=== PATIENT | female | born 1950 | race Caucasian/White ===

== ENCOUNTER 2019-01-24 14:34 | Outpatient (CLI) | payer MEDICARE, OTHER, SELFPAY ==
--- NOTE | 2019-01-24 13:00 | DI.RAD_ITS ---
SYMPTOMS/DIAGNOSIS: CERVICALGIA, M54.2, SCOLIOSIS, BACK PAIN, M46.0, LOW BACK PAIN, M54.5 CERVICAL SPINE: Odontoid, AP and lateral views. There is straightening of the normal cervical lordosis. 1-2 mm of anterolisthesis is seen on C4 on C5. There is disc space narrowing as seen at C3-4, 5-6 and C6-C7. Endplate osteophytes are seen at multiple levels of the cervical spine. There are also hypertrophic changes of the facets, particularly at C3-4. Mild narrowing of the neural foramen is seen bilaterally at C3-C4. No acute fracture or subluxation is seen. The prevertebral soft tissues are unremarkable. IMPRESSION: Moderate degenerative changes in the cervical spine. THORACIC SPINE: AP and lateral views. No priors. There is a mild right convex scoliosis seen in the lower thoracolumbar spine. There are endplate osteophytes present throughout the thoracic spine. No acute fractures or subluxations are seen. The paraspinal lines appear intact. IMPRESSION: 1. Mild degenerative changes of the thoracic spine. 2. Right convex lower thoracic and lumbar scoliosis. LUMBAR SPINE: AP, lateral and bilateral oblique views. No priors. There is a right convex scoliosis from T10-L3. No spondylolysis or spondylolisthesis is seen. No acute fractures or subluxations are present. There is disc space narrowing at L2-3 and L4-L5. Endplate osteophytes are present throughout the lower lumbar spine. There are degenerative changes seen in the lumbar spine. IMPRESSION: 1. Right convex lower thoracic and lumbar scoliosis. 2. Mild to moderate degenerative changes in the lumbar spine.
== END 2019-01-24 14:54 ==
PROVIDERS: PCP Nurse Practitioner Adult Health; Visit Provider Nurse Practitioner Adult Health
DX: G89.29 Other chronic pain (principal); M54.2 Cervicalgia; M54.6 Pain in thoracic spine; M54.5 Low back pain; M51.14 Intervertebral disc disorders with radiculopathy, thoracic region; M41.24 Other idiopathic scoliosis, thoracic region; M51.16 Intervertebral disc disorders with radiculopathy, lumbar region; M41.26 Other idiopathic scoliosis, lumbar region
CPT/HCPCS: 72050; 72072; 72110

== ENCOUNTER 2020-01-12 00:29 | Outpatient (CLI) | payer MEDICARE, OTHER, SELFPAY ==
--- NOTE | 2020-01-12 07:45 | DI.RAD_ITS ---
EXAM: XR WRIST LT COMPLETE CLINICAL HISTORY: pain in wrist ulna; assess bones; ?remote fractURE,M25.539,M89.8X3. TECHNIQUE: 2D digital imaging was performed. COMPARISON: No exams were available for comparison FINDINGS: BONES: No acute or healing fracture is present. No bony destructive lesion is seen. JOINTS: The carpal bones are normally aligned. At the 1st carpometacarpal joint, there is joint spac e narrowing, subchondral sclerosis and marked hypertrophy. Mild degenerative changes are seen at the articulation of the scaphoid and the quadrangular bones. SOFT TISSUE: Normal. IMPRESSION: 1. No acute or healing fracture or dislocation. 2. Marked arthrosis of the 1st carpometacarpal joint. DATA REPOSITORY: RADIATION DOSE DELIVERED:
--- NOTE | 2020-01-12 15:30 | DI.MAMMO_ITS ---
EXAM: MAMMO SCREENING CLINICAL HISTORY: screening TECHNIQUE: Mammograms were interpreted according to the usual protocol including computer analysis w [employer] CAD system, tomosynthesis and C-view imaging. FINDINGS: The breasts are heterogeneously dense. No dominant mass or clumped microcalcification is identified in either breast. No prior studies available for comparison. There is an area of asymmetric density projected in the central superior portion of left breast seen on CC and MLO views. Breast architecture is not ideally visualized at this site. Additional mammogr aphic views are requested to evaluate the possibility of a mass or architectural distortion, to inclu de CC and MLO spot compression views of the left breast. Breast ultrasound recommended as well. IMPRESSION: Additional mammographic views left breast and left breast ultrasound requested as described above. Ca tegory 0. Breast density, category C. BI-RADS Cat 0 - Assessment Incomplete: Need additional imaging evaluation. Breast Density - Category C - Heterogeneously dense.
== END 2020-01-12 00:49 ==
PROVIDERS: PCP Nurse Practitioner Adult Health; Visit Provider Nurse Practitioner Adult Health
DX: Z12.31 Encounter for screening mammogram for malignant neoplasm of breast (principal); R92.8 Other abnormal and inconclusive findings on diagnostic imaging of breast; M25.532 Pain in left wrist; M18.12 Unilateral primary osteoarthritis of first carpometacarpal joint, left hand
CPT/HCPCS: 77063; 77067; 73110

== ENCOUNTER 2020-02-16 01:51 | Outpatient (CLI) | payer MEDICARE, OTHER, SELFPAY ==
--- NOTE | 2020-02-16 | DI.MAMMO_ITS ---
EXAM: ADDITIONAL MAMMOGRAPHIC VIEWS LEFT BREAST AND US BREAST LT LIMITED: CLINICAL HISTORY: F/U ABNL MAMMO, LT BREAST SYMMETRIC DENSITY, ? MASS TECHNIQUE: Ultrasound performed using standard protocol. COMPARISON: No exams were available for comparison FINDINGS: Additional mammographic views of the left breast and left breast ultrasound are interpreted in conjun ction. These examinations were obtained to evaluate questionable area of asymmetric density of the c entral superior portion of left breast seen on recent mammogram of January 11. CC and MLO spot compression views obtained today show no evidence of a mass. Breast ultrasound shows no evidence of a mass or cyst. IMPRESSION: No specific evidence of malignancy at this time. I would suggest that a follow-up unilateral left b reast mammogram be obtained in 6 months. DATA REPOSITORY: BI-RADS Cat 3 - 6 month - Probably Benign Finding: Recommend follow-up mammography in 6 months Breast Density - Category B - Scattered areas of fibroglandular density
== END 2020-02-16 02:11 ==
PROVIDERS: PCP Nurse Practitioner Adult Health; Visit Provider Nurse Practitioner Adult Health
DX: Z12.31 Encounter for screening mammogram for malignant neoplasm of breast (principal); R92.8 Other abnormal and inconclusive findings on diagnostic imaging of breast; N64.59 Other signs and symptoms in breast
CPT/HCPCS: 76642; 77063; 77067

== ENCOUNTER 2020-08-19 02:17 | Outpatient (CLI) | payer MEDICARE, OTHER, SELFPAY ==
--- NOTE | 2020-08-19 07:30 | DI.MAMMO_ITS ---
EXAM: MG MAMMO DIAGNOSTIC UNI CLINICAL HISTORY: 6 mo f/u mammo,R92.8. COMPARISON: MG MG MAMMO SCREENING from 01/12/2020 US US BREAST LT LIMITED from 02/16/2020 MG MG MAMMO SCREEN CALL BACK UNI from 02/16/2020 TECHNIQUE: Craniocaudal and mediolateral oblique Full Field Digital Mammography views of the left br east with Computer Aided Diagnosis . FINDINGS: Mammography/Tomosynthesis: Masses/Architectural Distortion: None seen. The previously noted superior central density is not evid ent on today's exam. Microcalcifications: No suspicious pleomorphic-type are seen. Incidental vascular calcifications. Skin Thickening/Nipple Retraction: None. IMPRESSION: 1. No evidence of malignancy is noted. 2. Unless there is more urgent need, follow-up bilateral screening mammography is recommended, in 6 m onths. BI-RADS Category 1 - Negative Breast Density - Category B - Scattered areas of fibroglandular density The mammogram demonstrates the patient's breast tissue is dense. Dense breast tissue is very common a nd is not abnormal but dense breast tissue can make it harder to find cancer on a mammogram. Also, de nse breast tissue may increase their breast cancer risk. This information about the result of the [facility] mogram report was provided to the patient to raise their awareness. Use this report when you speak wi th the patient about their risks for breast cancer, which includes their family history. At that time , you may recommend for more screening tests (Ultrasound or MRI) as they might be useful based on the ir risk. A negative radiographic report should not delay biopsy if a dominant or clinically suspicious mass is present. Up to ten percent of cancers are not identified on mammography. A negative report may reinforce clinical impression. Adenosis and dense breasts may obscure an underlying neoplasm. False positive reports average 6 to 10%. Patient will receive a letter notifying them of these results.
== END 2020-08-19 02:37 ==
PROVIDERS: PCP Nurse Practitioner Adult Health; Visit Provider Nurse Practitioner Adult Health
DX: R92.8 Other abnormal and inconclusive findings on diagnostic imaging of breast (principal)
CPT/HCPCS: 77061; 77065; G0279

== ENCOUNTER 2020-10-04 00:59 | Outpatient (CLI) | payer MEDICARE, OTHER, SELFPAY ==
--- NOTE | 2020-10-04 07:30 | DI.US_ITS ---
EXAM: US PELVIS TRANSVAGINAL CLINICAL HISTORY: Check uterine size,UTERINE PROLAPSE,N81.4. TECHNIQUE: Transabdominal and transvaginal pelvic ultrasound was performed using standard protocol. COMPARISON: CR XR cervical spine comp 4-5V from 01/24/2019 FINDINGS: UTERUS: Uterus is nongravid and anteverted, measuring 5.5 centimetres in length by 1.8 centimetres AP. Small amount of fluid is noted in the endometrial canal. Endometrial thickness is 5 millimeters. There i s also 4 x 3 millimeter hyperechoic focus which is probably a endometrial polyp the mid endometrial l evel. Right ovary measures 2 x 1.2 x 1.1 centimetres. Left ovary measures 1.9 x 1.2 x 1.2 centimetres No fluid in the cul-de-sac. Right kidney measures 8.6 centimeters in length. Left kidney measures 8.9 centimetres in length. Both kidneys exhibit normal cortical thickness and normal corticomedullary differentiation. No hydro nephrosis IMPRESSION: 1. Normal sonographic appearance of the kidneys. 2. There is abnormal fluid in the endometrial cavity. Requires workup 3. Age-appropriate ovaries. No abnormal adnexal masses. No free fluid. DATA REPOSITORY:
== END 2020-10-04 01:19 ==
PROVIDERS: PCP Nurse Practitioner Adult Health; Visit Provider Obstetrics & Gynecology
DX: N81.4 Uterovaginal prolapse, unspecified (principal); R93.89 Abnormal findings on diagnostic imaging of other specified body structures
CPT/HCPCS: 76830; 76856

== ENCOUNTER 2020-10-15 03:05 | Outpatient (CLI) | payer MEDICARE, OTHER, SELFPAY ==
[2020-10-15 12:58] LABS: Abs Immature Grans 0.01 10^3/uL (0.0-0.06); Absolute Basophil Count 0.04 10^3/uL (0.0-0.2); Absolute Eosinophil Count 0.06 10^3/uL (0.0-0.7); Absolute Lymphocyte Count 1.42 10^3/uL (1.2-3.4); Absolute Monocyte Count 0.45 10^3/uL (0.1-0.8); Absolute Neutrophil Count 4.61 10^3/uL (1.2-6.7); Basophils % 0.6; Eosinophils % 0.9; HCT 40.8 % (36.0-46.0); HGB 13.2 g/dL (11.2-15.7); Immature Grans % 0.2; Lymphocytes % 21.5; MCH 29.1 pg (27.0-33.0); MCHC 32.4 % (32.0-36.0); MCV 89.9 fL (80-95); MPV 8.4 fL (8.0-11.0); Monocytes % 6.8; Nucleated RBC 0 %; Platelet Count 317 10^3/uL (130-400); RBC 4.54 10^6/uL (3.93-5.22); RDW 12.5 % (11.7-14.6); RDW-SD 40.8 fL; WBC 6.59 10^3/uL (4.4-10.8)
[2020-10-18 21:31] LABS: COVID-19 RT-PCR Result NEGATIVE (Negative)
== END 2020-10-15 03:25 ==
PROVIDERS: PCP Nurse Practitioner Adult Health; Visit Provider Obstetrics & Gynecology
DX: N85.8 Other specified noninflammatory disorders of uterus (principal); Z11.59 Encounter for screening for other viral diseases; Z01.818 Encounter for other preprocedural examination; Z01.812 Encounter for preprocedural laboratory examination
CPT/HCPCS: 36415; 86850; 86900; 86901; U0003; 85025

== ENCOUNTER 2020-10-20 06:15 | Day surgery (SDC) | payer MEDICARE, OTHER, SELFPAY ==
[2020-10-20 06:19] VITALS: BP 149/74; PULSE 81; RESP 18; TEMP 36.6; O2SAT 96
[2020-10-20] MEDS: Lactated Ringers 1,000 ML 125 ML IV (07:10)
--- NOTE | 2020-10-20 07:57 | ENDO_PTH ---
PATIENT: Cayla Barnett LOC: [facility] U#:[id number] AGE/SX: 70/F ROOM: RE10/20/[address]: Magaly Palmer DO : 1950 BED: DIS: 10/20/2020 SPEC #: [id number] RECD: 10/20/20 12:41 STATUS: BOONE RELevi #: [id number] JJ: 10/20/20 07:[address]: Magaly Palmer DEPT: Surgical Specimen RECD BY: Avelina Cope ENTERED: 10/20/20 12:42 SP TYPE: Endo OTHR DR: Elis Jiménez APRN Tissues: 1 - ENDOCERVICAL BX/CURRETTE 2 - ENDOMETRIUM BX/CURRETTE Procedures: GROSS AND MICRO LEVEL 4 Comments: [id number]
--- NOTE | 2020-10-20 08:08 | W.PM.OP ---
Date of service: 10/20/20 Time of Service: 08:08 Operative Note Operative Note DATE OF PROCEDURE: 10/20/20 PRE-OP DIAGNOSIS: Endometrial fluid collection POST-OP DIAGNOSIS: same Atrophic endometrium with 3 mm endometrial polyp PROCEDURE: Hysteroscopy with dilation and curettage SURGEON: Magaly Palmer ANESTHESIA: MAC ESTIMATED BLOOD LOSS: 5 PATHOLOGY: other (1. Endocervical curetting 2. Endometrial curetting) COMPLICATIONS: None Patient was transported to: PACU Patient's condition: stable Indications: Endometrial fluid collection Findings: Complete procidentia, minimal hypermobility at the urethrovesical angle, no evidence of rectocele, intravaginal papulosis noted. Thin endometrium, tiny 2 to 3 mm flat polyp at the left lower uterine segment Procedure Description: Patient is a 70-year-old female with pelvic organ prolapse. Preoperative ultrasound confirmed endometrial fluid collection with suspicion of endometrial polyp. For this reason the decision was made for hysteroscopy with dilation and curettage for further evaluation. The risk benefits and alternatives procedure were explained to the patient in full informed consent was obtained. She is taken the operating suite with IV running where she was placed in dorsal supine position. Anesthesia administered tested and found to be adequate. She is then placed in the modified dorsolithotomy position in yellowfin stirrups and prepped and draped in the usual sterile fashion. Straight cath was used to empty the bladder for approximately 100 cc of clear yellow urine. exam under anesthesia revealed a uterus that was small, approximately 5 cm in length with complete procidentia. As noted, she did have vaginal alkalosis of the mucosa. There is no evidence of adnexal mass. Cervix was grasped with a single-tooth tenaculum cervical os dilated the point that a 5 mm hysteroscope could be passed with ease. With instillation of normal saline the entire endometrial cavity was inspected and found to be smooth and regular with patent tubal ostia. There was noted to be a 2 to 3 mm flat polyp in the left lower uterine segment. Initially endocervical curettage was performed for scant tissue subsequently endometrial curettage performed for scant tissue. Both specimens are sent to pathology. At this point tenaculum and speculum were both removed and patient awoke from anesthesia with ease. EBL: 5 mL Complications: None apparent Pathology: 1. Endocervical curettage 2. Endometrial curettage
[2020-10-20 09:03] VITALS: BP 154/77; PULSE 68; RESP 18; TEMP 36.2; O2SAT 98
== END 2020-10-20 09:33 | disposition home or self-care (01) ==
PROVIDERS: PCP Nurse Practitioner Adult Health; Visit Provider Obstetrics & Gynecology
PROC: 0UDB8ZZ Extraction of Endometrium, Via Natural or Artificial Opening Endoscopic (ICD-10-PCS; CPT 58558; principal; 2020-10-20 07:30)
DX: N85.8 Other specified noninflammatory disorders of uterus (principal); N84.0 Polyp of corpus uteri; N81.3 Complete uterovaginal prolapse
CPT/HCPCS: 58558; 88305; J1100; J1885; J2001; J2405

== ENCOUNTER → 2020-12-07 10:56 | Outpatient (BNVA) | payer MEDICARE, OTHER, SELFPAY | PROVIDERS: PCP Nurse Practitioner Adult Health; Referring Provider Nurse Practitioner Adult Health; Visit Provider Urology | DX: N81.4 Uterovaginal prolapse, unspecified (principal) | CPT/HCPCS: 99203 ==

== ENCOUNTER 2020-12-31 02:27 | Outpatient (CLI) | payer MEDICARE, OTHER, SELFPAY ==
[2020-12-31 12:48] LABS: Abs Immature Grans 0.01 10^3/uL (0.0-0.06); Absolute Basophil Count 0.04 10^3/uL (0.0-0.2); Absolute Eosinophil Count 0.06 10^3/uL (0.0-0.7); Absolute Lymphocyte Count 1.69 10^3/uL (1.2-3.4); Absolute Monocyte Count 0.31 10^3/uL (0.1-0.8); Absolute Neutrophil Count 3.77 10^3/uL (1.2-6.7); Basophils % 0.7; HCT 42.1 % (36.0-46.0); HGB 13.5 g/dL (11.2-15.7); Immature Grans % 0.2; Lymphocytes % 28.7; MCH 29.2 pg (27.0-33.0); MCHC 32.1 % (32.0-36.0); MCV 91.1 fL (80-95); MPV 8.2 fL (8.0-11.0); Monocytes % 5.3; Neutrophils % 64.1; Nucleated RBC 0 %; Platelet Count 338 10^3/uL (130-400); RBC 4.62 10^6/uL (3.93-5.22); RDW 12.5 % (11.7-14.6); RDW-SD 41.2 fL; WBC 5.88 10^3/uL (4.4-10.8)
== END 2020-12-31 02:28 | disposition home or self-care (01) ==
LOC: LBO 02:27
PROVIDERS: PCP Nurse Practitioner Adult Health; Visit Provider Obstetrics & Gynecology
DX: N81.3 Complete uterovaginal prolapse (principal); N84.0 Polyp of corpus uteri; Z01.818 Encounter for other preprocedural examination; Z01.812 Encounter for preprocedural laboratory examination
CPT/HCPCS: 36415; 86850; 86900; 86901; 85025

== ENCOUNTER 2021-01-05 10:48 | Inpatient (IN) | payer MEDICARE, OTHER, SELFPAY ==
[2021-01-05] VITALS (21 sets, daily range): BP systolic 95–132; BP diastolic 42–73; PULSE 46–84; RESP 12–18; TEMP 36.3–36.8; O2SAT 93–99
[2021-01-05] MEDS: Lactated Ringers 1,000 ML 125 ML IV ×3 (06:52→20:15)
[2021-01-05] MEDS: ceFAZolin 2 GM/50 ML BAG IVPB (07:34)
[2021-01-05] MEDS: Bupivacaine 0.5% Pres-Free 30 ML VIAL (08:32)
--- NOTE | 2021-01-05 09:20 | UTER_PTH ---
PATIENT: Cayla Barnett LOC: [facility] U#:[id number] AGE/SX: 71/F ROOM: OBS.306 RE01/05/[address]: Magaly Palmer DO : 1950 BED: A DIS: 01/06/2021 SPEC #: [id number] RECD: 01/05/21 12:43 STATUS: BOONE REQ #: [id number] JJ: 01/05/21 09:[address]: Magaly Palmer DEPT: Surgical Specimen RECD BY: Avelina Cope ENTERED: 01/05/21 12:44 SP TYPE: UTER OTHR DR: Elis Jiménez APRN Tissues: 1 - UTERUS W OR W/O OVARIES(NOT TUMOR/PROLAPSE) Procedures: GROSS AND MICRO LEVEL 4 Comments: [id number]
--- NOTE | 2021-01-05 10:52 | W.PM.OP ---
Date of service: 01/05/21 Time of Service: 10:52 Operative Note Operative Note DATE OF PROCEDURE: 01/05/21 PRE-OP DIAGNOSIS: Pelvic organ prolapse POST-OP DIAGNOSIS: same PROCEDURE: Laparoscopically assisted vaginal hysterectomy with bilateral salpingo-oophorectomy, Callahan's culdoplasty, anterior colporrhaphy, Rachana plication, cystoscopy SURGEON: Magaly Palmer ASSISTING SURGEON: Maribel Nayak ANESTHESIA TYPE: General LMA/ETT and Spinal Refer to Anesthesia Record ESTIMATED BLOOD LOSS: 100 COMPLICATIONS: None Patient was transported to: PACU Patient's condition: stable Indications: Symptomatic pelvic organ prolapse Findings: Complete procidentia, grade 2 cystocele, small uterus, atrophic ovaries, normal fallopian tubes. Procedure Description: Patient is a 71-year-old female who has symptomatic uterine and bladder prolapse. She states that during a normal day, her bladder and uterus protrude through the vagina which is uncomfortable and awkward for her. She has had a full and thorough evaluation including preoperative work-up with ultrasound and endometrial sampling which were benign. She is also been seen by urology for evaluation of need for mid urethral sling, however she declined this at this point and we will see what her bladder function is post surgical correction. The risks, benefits, alternatives the procedure were explained to the patient and full informed consent was obtained. She was taken the operating suite with an IV running where she is placed in the seated position and intrathecal narcotics were administered in the usual fashion per anesthesia. She was then placed in the dorsal supine position and endotracheal intubation performed for the ministration of general anesthesia with ease. At this point she was placed in the modified dorsolithotomy position in [facility] and prepped and draped in the usual sterile fashion. Exam under anesthesia revealed complete procidentia with a grade 2 cystocele and minimal rectocele. Uterus was small, midline, mobile, without evidence of adnexal masses. At this point weighted speculum placed into the posterior vaginal vault and a [employer] uterine manipulator used to manipulate the uterus. Garcia catheter was inserted for continuous bladder drainage. At this point speculum was removed and attention was returned to the abdomen. After infiltration of half percent Marcaine at the infraumbilical area a 10 mm incision was made at the umbilicus and a varies needle directly inserted into the abdomen after elevation of the anterior abdominal wall. Varies needle was used to insufflate with CO2 gas to a maximum pressure of 15 mmHg to create a pneumoperitoneum. At this point varies needle was removed and a bladeless Optiview trocar was used to insert camera under direct visualization. The abdomen was inspected and found to be atraumatic. At this point a second and third right and left lower quadrant trocar site were placed under direct visualization a 5 mm trocar after infiltration of half percent Marcaine. This allowed for instrumentation as the uterus was elevated, it was found to be small, midline, and mobile. There is no evidence of adnexal adhesions or pelvic adhesions. Ovaries bilaterally were small, atrophic and normal fallopian tubes were attached. Attention was initially turned to the right fallopian tube and ovary which were elevated and the infundibulopelvic ligament identified cautery transected and ligated. The right round ligament was then identified cautery transected and ligated allowing access to the broad ligament. The anterior leaf of the broad ligament was elevated and the anterior portion of the bladder flap created. Similar procedure was carried out on the left infundibulopelvic ligament, the left round ligament, and the left anterior leaf of the broad ligament. At this point uterine arteries were cauterized bilaterally to assist with the lower portion of the dissection. At this point the abdominal portion of the procedure was completed and attention was turned to the vaginal vault. CO2 gas and camera were removed from the abdomen. At this point a weighted speculum was placed in the posterior vaginal vault. The uterus was significantly small and relaxed and a Ivan clamp used to grasp the anterior lip of the cervix. With the Bovie cautery a circumferential incision was placed at the cervical vaginal interface. Attention was turned to the right and left uterosacral complexes which were clamped transected and ligated. The anterior dissection was performed with anterior colpotomy followed by a posterior colpotomy after meticulous sharp dissection. Cervical length was noted to be markedly long and approximately 6 cm and remainder of the uterus relatively small. In a systematic fashion the uterosacral cardinal complexes were grasped bilaterally transected and ligated as were the uterine vessels clamped transected and ligated. This allowed delivery of the uterus, tubes, and ovaries through the vaginal vault. At this point a Callahan's culdoplasty was performed in the usual fashion to plicate any area of enterocele. With inspection of the pedicles and Callahan culdoplasty stitch found to be hemostatic anterior colporrhaphy was then undertaken. The anterior vaginal mucosa was infiltrated with 1% lidocaine with epinephrine for [place] dissection and hemostasis. The vaginal mucosa was then meticulously sharply acted away from the underlying endopelvic fascia. The vaginal mucosa was trimmed and a Rachana plication stitch placed in the suburethral area. The remainder of the endopelvic fascia anteriorly were reapproximated in the midline and the vaginal mucosa was then reapproximated in the midline as well. The uterosacral cardinal complex stitches were suspended to the apices of the vagina with a free stitch and the vaginal cuff was then closed using 0 Vicryl suture in a running locked fashion. This provided good anterior support, elevation of the suburethral area, and suspension of the vaginal apices. Upon completion of the anterior colporrhaphy with Callahan's culdoplasty there was no notable rectocele appreciated and posterior colporrhaphy was not necessary. Attention was then returned to the abdomen where pneumoperitoneum recreated with CO2 gas to a maximum pressure of 15 mmHg. All pedicles and vaginal cuff were inspected and found to be hemostatic. Visualization of the right ureter past peristalsing appropriately was seen left ureter was obscured by the rectosigmoid colon. Due to the complexity of the dissection and incomplete visualization of the left ureter decision was made for bladder cystoscopy. Patient received indigo carmine intravascularly. The infraumbilical incision at the fascia was closed using 0 Vicryl suture in a simple interrupted fashion and skin edges were reapproximated with 4-0 Monocryl and Steri-Strips were then placed. Attention was turned to cystoscopy where a 30 degree camera was used to visualize the entirety of the bladder and ureteric orifice ease. There was no evidence of trauma, injury, or suture within the bladder. Both ureteric orifice ease were visualized and with tuft of blue dyed urine found to be patent. At this point procedure was terminated and Garcia catheter was reinserted. Patient was returned to dorsal supine position and woke from anesthesia with ease with her Garcia catheter draining blue tinted urine. EBL: 100 mL Fluids: Crystalloid per anesthesia Complications: None apparent Pathology: Uterus, tubes, ovaries for pathologic examination.
[2021-01-05] MEDS: Normal Saline Flush 10 ML SYR IV (12:00)
[2021-01-05] MEDS: Ketorolac 30 MG/ML VIAL 15 MG IVP ×2 (13:13→19:10)
--- NOTE | 2021-01-05 16:36 | PGE_ITS ---
Date of Service Date of service: 01/05/21 Time of Service: 16:36 Assessment and Plan Assessment and plan (1) Status post laparoscopy-assisted vaginal hysterectomy: Status: Acute Assessment and plan: Patient is postoperative day #0 status post laparoscopically assisted vaginal hysterectomy with bilateral salpingo- oophorectomy and anterior colporrhaphy with Callahan's culdoplasty. She is doing well postoperatively. She will have her Garcia catheter removed. She will continue to ambulate. Advance diet as tolerated. Pain control as necessary. Anticipate discharge home tomorrow if stable. Subjective Subjective Patient reports: tolerating liquids well, tolerating a regular diet and no flatus; denies shortness of breath Exam Narrative Exam Narrative: Patient seen today postoperative day #0. Surgical procedure reviewed at length. Patient doing well. Minimal nausea. Pain under good control. Vital signs are stable. Objective Last Vital Signs Temp 98.1 F 01/05/21 13:42 Pulse 70 01/05/21 13:42 Resp 16 01/05/21 13:42 BP 121/55 L 01/05/21 13:42 Pulse Ox 99 01/05/21 13:42
[2021-01-05] MEDS: Ondansetron 4 MG/2 ML VIAL IVP (16:55)
[2021-01-05] MEDS: Metoclopramide 10 MG/2 ML VIAL IVP (19:10)
[2021-01-05] MEDS: Normal Saline 250 ML 500 ML IV (19:45)
[2021-01-05] MEDS: Scopolamine 1 MG/3 DAYS PATCH TD (20:00)
[2021-01-05] MEDS: Budesonide/Formoterol 160/4.5 6 GM 60 PUFF INH IH (20:00)
--- NOTE | 2021-01-05 20:42 | NUR.NOTE ---
Pt continues to have nausea and hypoactive bowel sounds. Ambulation encouraged, pt states she is afraid she will vomit if she gets out of bed. will call RN when she feels ready to ambulate.
[2021-01-06] VITALS (7 sets, daily range): BP systolic 111–128; BP diastolic 49–58; PULSE 64–69; RESP 16–18; TEMP 36.7–36.9; O2SAT 94–98
[2021-01-06] MEDS: Ketorolac 30 MG/ML VIAL 15 MG IVP (01:21)
[2021-01-06 06:57] LABS: Abs Immature Grans 0.02 10^3/uL (0.0-0.06); Absolute Basophil Count 0.02 10^3/uL (0.0-0.2); Absolute Eosinophil Count 0.01 10^3/uL (0.0-0.7); Absolute Lymphocyte Count 1.49 10^3/uL (1.2-3.4); Absolute Monocyte Count 0.73 10^3/uL (0.1-0.8); Absolute Neutrophil Count 6.38 10^3/uL (1.2-6.7); Basophils % 0.2; Eosinophils % 0.1; HCT 34.6 % (36.0-46.0); HGB 11.2 g/dL (11.2-15.7); Immature Grans % 0.2; Lymphocytes % 17.2; MCH 29.6 pg (27.0-33.0); MCHC 32.4 % (32.0-36.0); MCV 91.5 fL (80-95); MPV 8.5 fL (8.0-11.0); Monocytes % 8.4; Neutrophils % 73.9; Nucleated RBC 0 %; Platelet Count 271 10^3/uL (130-400); RBC 3.78 10^6/uL (3.93-5.22); RDW 12.5 % (11.7-14.6); RDW-SD 41.9 fL; WBC 8.65 10^3/uL (4.4-10.8)
[2021-01-06] MEDS: Budesonide/Formoterol 160/4.5 6 GM 60 PUFF INH IH (08:46)
--- NOTE | 2021-01-06 09:34 | PGE_ITS ---
Date of Service Date of service: 01/06/21 Time of Service: 09:34 Assessment and Plan Assessment and plan (1) Status post laparoscopy-assisted vaginal hysterectomy: Status: Acute Assessment and plan: Patient is postoperative day #1 status post laparoscopically assisted vaginal hysterectomy with bilateral salpingo- oophorectomy culdoplasty and anterior posterior colporrhaphy. She is doing well. She did have some nausea and occasional episode of vomiting through the night last night. She has better this morning. She is passing flatus. She has been ambulatory. She is voiding without difficulty. Her hemoglobin is stable. Vital signs are also stable. I would anticipate discharge home this afternoon. She will continue to ambulate and advance her diet along with oral pain medication today. Subjective Subjective Patient reports: feels better, pain is less, tolerating liquids well, flatus and nausea; denies shortness of breath Interval history since last seen: Patient seen and examined this morning. She had some nausea through the evening last night with occasional episodes of vomiting. This morning she is passing flatus. She has been ambulatory. She is overall feeling better. She is slowly advancing her diet and would be amenable to discharge later today. Exam Const General: cooperative, healthy appearing, no acute distress and well developed Nutritional Appearance: average body habitus Orientation: alert and oriented x3 Eyes General: appearance normal, both eyes and all related structures Resp Effort & Inspection: normal respiratory effort Cardio Rate: regular rate Rhythm: regular rhythm GI Inspection: normal to inspection, distended (Mild distention) and incision (Clean dry intact, dressed, ecchymosis at the umbilical site) Palpation: soft, not firm, no guarding and not rigid Auscultation: normal bowel sounds Extrem General: no clubbing, cyanosis or edema, no pedal edema and no calf tenderness Psych Appearance: grossly normal Speech and Movement: speech and movement normal Mood: congruent mood Affect: normal affect Attitude: cooperative Thought Process: normal Thought Content: normal Objective Last Vital Signs Temp 98.4 F 01/06/21 07:53 Pulse 69 01/06/21 07:53 Resp 16 01/06/21 07:53 BP 111/49 L 01/06/21 07:53 Pulse Ox 94 01/06/21 07:53 Laboratory Results - last 24 hr 01/06/21 06:15 WBC 8.65 RBC 3.78 L Hgb 11.2 Hct 34.6 L MCV 91.5 MCH 29.6 MCHC 32.4 RDW 12.5 Plt Count 271 MPV 8.5 Immature Gran % 0.2 Neutrophils % 73.9 Lymphocytes % 17.2 Monocytes % 8.4 Eosinophils % 0.1 Basophils % 0.2 Nucleated RBC % 0 Absolute Neutrophils 6.38 Absolute Lymphocytes 1.49 Absolute Monocytes 0.73 Absolute Eosinophils 0.01 Absolute Basophils 0.02
--- NOTE | 2021-01-06 09:48 | W.PM.DS.N ---
Date of service: 01/06/21 Time of Service: 09:48 DS: Diagnosis Discharge Diagnosis (1) Status post laparoscopy-assisted vaginal hysterectomy: Status: Acute Discharge Plan Disposition Patient Disposition: HOME Condition: Good Discharge Details Reason For Visit: [facility] Admit Date/Time: 01/05/21 10:48 Admit Provider: Magaly Palmer Attending Provider: Magaly Palmer Primary Care Provider: Elis Jiménez Hospital Course Hospital Course: Patient underwent an uncomplicated laparoscopically assisted vaginal hysterectomy with bilateral salpingo-oophorectomy, Callahan's culdoplasty, anterior colporrhaphy. She had had symptomatic pelvic prolapse and this was corrected measures. She had normal intraoperative blood loss and uncomplicated postoperative course. She did have mild nausea and vomiting postoperative day #0 which has resolved. She is ambulating, tolerating regular diet and oral pain medication with stable vital signs. She is able to void without difficulty. She will be seen in the office in 2 weeks time Home Meds and New Rx's Prescriptions: New Acetaminophen [Tylenol] 500 mg PO Q4H PRN PRNQty: 30 RF: 0 ibuprofen 600 mg tablet 600 mg PO Q6H PRN PRNQty: 30 RF: 1 oxycodone-acetaminophen 5-325 mg Tablet 1 tab PO Q4H PRN PRNQty: 10 RF: 0 docusate sodium [Colace] 100 mg capsule 100 mg PO BID PRN (Reason: constipation) Qty: 20 RF: 0 Continued sodium chloride [Saline Nasal] 0.65 % aerosol,spray 1 spray ROVERTO Q1-4H PRNRF: 0 fluticasone propion-salmeterol [Advair Diskus] 250-50 mcg/dose blister with device 1 inh inhalation BID Qty: 60 RF: 11 albuterol sulfate [Ventolin HFA] 90 mcg/actuation HFA aerosol inhaler 1 - 2 puff IH Q4H PRN (Reason: asthma) Qty: 6.7 RF: 3 fluticasone propionate [Allergy Relief (fluticasone)] 50 mcg/actuation spray,suspension 1 - 2 spray ROVERTO DAILY PRN (Reason: allergy symptoms) Qty: 9 RF: 6 meloxicam 15 mg tablet 7.5 - 15 mg PO DAILY PRN (Reason: scoliosis pain) Qty: 90 RF: 3 ibuprofen [IBU] 800 mg tablet 800 mg PO Q8H PRNQty: 30 RF: 0 Discharge Instructions Stand Alone Forms: DSU Post Gynecology Surgery Activity:: Pelvic rest Equipment/Supplies:: No Equipment Needed Diet:: As Tolerated Discharge Orders Discharge Orders: Discharge Order (Routine); Ordered 01/06/21 Ordered By: Magaly Palmer DS: Summary Time Spent with Patient providing and/or coordinating discharge services: Less than 30 minutes Status at Discharge Functional status at discharge: independent ambulation Overall status at discharge: patient is progressing back to baseline Mental Status: mental status grossly normal Speech and Movement: speech and movement normal Mood: congruent mood Affect: normal affect Exam Narrative Exam Narrative: Please see physical exam on progress note dated 01/06/2021 Psych Mental Status: mental status grossly normal Speech and Movement: speech and movement normal Mood: congruent mood Affect: normal affect DS: Data Vitals/I&O Vitals and I&O: Vital Signs Temperature 98.4 F 01/06/21 07:53 Temperature Source Oral 01/06/21 07:53 Pulse 69 01/06/21 07:53 Pulse Rhythm Regular 01/06/21 07:54 Respiratory Rate 16 01/06/21 07:53 Respiratory Effort 01/06/21 07:54 Respiratory Depth Normal 01/06/21 07:54 Respiratory Pattern Normal 01/05/21 20:00 Blood Pressure 111/49 L 01/06/21 07:53 Pulse Oximetry 94 01/06/21 07:53 Respiratory End-tidal CO2 36 01/05/21 11:26 Oxygen Delivery Method Room Air 01/06/21 07:53 Oxygen Flow Rate 0 01/06/21 07:53 Pain Level 0 01/06/21 07:53 Comment 01/06/21 05:00 Intake & Output 01/05/21 01/05/21 01/06/21 11:59 23:59 11:59 Intake Total 1225 / 2952.083 1727.083 / 2952.083 Output Total 475 / 1925 1450 / 1925 800 / 800 Balance 750 / 1027.083 277.083 / 1027.083 -800 / -800 Weight 147 lb 7.828 oz Intake: IV 825 / 2162.083 1337.083 / 2162.083 Oral 400 / 790 390 / 790 Output: Urine 475 / 875 400 / 875 800 / 800 Emesis 1050 / 1050 Other: Urine Color Yellow Light Yaz Yellow Urine Appearance Clear Clear Clear Comment pale blue urine Emesis Description None Clear/Water None Voiding Methods Indwelling Catheter Data Completed and Pending Labs on day of discharge: Labs from last 24 hours 01/06/21 06:15 WBC 8.65 RBC 3.78 L Hgb 11.2 Hct 34.6 L MCV 91.5 MCH 29.6 MCHC 32.4 RDW 12.5 Plt Count 271 MPV 8.5 Immature Gran % 0.2 Neutrophils % 73.9 Lymphocytes % 17.2 Monocytes % 8.4 Eosinophils % 0.1 Basophils % 0.2 Nucleated RBC % 0 Absolute Neutrophils 6.38 Absolute Lymphocytes 1.49 Absolute Monocytes 0.73 Absolute Eosinophils 0.01 Absolute Basophils 0.02 PFSH Medical History Abnormal mammogram of left breast And U/S (L)--repeat in 6m ~07/2020; cat 3; F/U 07/2020, normal, cat 1. Allergic rhinitis due to pollen [place] [employer] consultation 2017: Saline spray, azelastine spray, ventolin, prednisone PRN, fluticasone, symbicort, zyrtec Arthrosis of first carpometacarpal joint L; x-ray 12/2019 COPD (chronic obstructive pulmonary disease) Pt. states she has damage to her bronchi due to a severe bought of bronchitis in her 20's Insomnia h/o clonazepam use 01/04/21 Pt denies JMC. Low back pain h/o meloxicam use +scoliosis Melanoma In situ, left upper inner arm s/p WLE 09/2015 Derm consultation (last 2016, no evidence of recurrence) q6m in [place] Moderate persistent asthma Palpitations Pt. stated had cardiac work-up in [place], per pt. stated told her she did not need to have any tx at the time, states occasionally she will get palpitations but they don't amount to much. Pt. states she is very active. Rhinitis Scoliosis Surgical History Status post D&C Status post laparoscopy-assisted vaginal hysterectomy LAVH, BSO, anterior colporrhaphy, Callahan's culdoplasty Status post surgical removal of malignant neoplasm of skin Family History Son Family history of thyroid problem Asthma Arthritis Father Stroke Mother Diabetes Breast cancer Asthma Arthritis Sister Diabetes Arthritis Social History Smoking/Tobacco Use Status: Never Smoking risk assessment performed?: Yes Alcohol Intake: current Alcohol Intake frequency: a few times a week Drug use: Never Substance use type: does not use Adopted: No Caregiver/Support person: Yes Foster care: No Household members: spouse and children Housing: house Communication Needs: None Education Level: master's degree Do you need help understanding health information?: Rarely current occupation: Retired self-employed PT What type of physical activity do you participate in: independent ambulation, aerobic, regular exercise and swimming Do you feel safe at home: Yes Do you feel safe in your relationship?: Yes Additional Social history: Lives with & son
[2021-01-06] MEDS: Acetaminophen 500 MG TAB PO (12:10)
[2021-01-06] MEDS: Ibuprofen 600 MG TAB PO (12:10)
== END 2021-01-06 13:30 | disposition home or self-care (01) | DRG 743 ==
LOC: OBS 11:41
PROVIDERS: Admitting Provider Obstetrics & Gynecology; PCP Nurse Practitioner Adult Health; Visit Provider Obstetrics & Gynecology
PROC: 0UT9FZZ Resection of Uterus, Via Natural or Artificial Opening With Percutaneous Endoscopic Assistance (ICD-10-PCS; CPT 58552; principal; 2021-01-05 07:30)
PROC: 0UT9FZZ Resection of Uterus, Via Natural or Artificial Opening With Percutaneous Endoscopic Assistance (ICD-10-PCS; CPT 57260; 2021-01-05 07:30)
DX: N81.2 Incomplete uterovaginal prolapse (principal); N80.0 Endometriosis of uterus; N83.292 Other ovarian cyst, left side; N83.291 Other ovarian cyst, right side; J44.9 Chronic obstructive pulmonary disease, unspecified; G47.00 Insomnia, unspecified; M54.5 Low back pain; J45.40 Moderate persistent asthma, uncomplicated; Z86.006 Personal history of melanoma in-situ; R11.2 Nausea with vomiting, unspecified
CPT/HCPCS: 58552; 57268; 57240; 36415; 88305; 99232; 99238; 85025; 88307; J0690; J1100; J1885; J2250; J2405; J2704; J2765; J3010

== ENCOUNTER 2021-10-04 00:32 | Outpatient (CLI) | payer MEDICARE, OTHER, SELFPAY ==
--- NOTE | 2021-10-04 13:24 | DI.MAMMO_ITS ---
Exam(s) MAMMO SCREENING EXAM: MAMMO SCREENING CLINICAL HISTORY: screening,Z12.39 TECHNIQUE: Bilateral full field digital CC and MLO mammographic images were obtained with 3D tomosyn thesis and utilizing computer aided detection (CAD). COMPARISON: Available for comparison. FINDINGS: Masses/Architectural Distortion: None seen. Microcalcifications: No suspicious pleomorphic-type are seen. Skin Thickening/Nipple Retraction: None. IMPRESSION: 1. No significant interval change with no specific features of malignancy noted. 2. Unless there is more urgent need, screening mammography is recommended, as per [place] [employer] guidelines. Category: Breast Density - Category B - Scattered areas of fibroglandular density Breast density category C or D implies that the patient has dense breast tissue. Dense breast tissue is very common and is not abnormal but dense breast tissue can make it harder to find cancer on a ma mmogram. Also, dense breast tissue may increase their breast cancer risk. This information about the result of the mammogram report was provided to the patient to raise their awareness. Use this report when you speak with the patient about their risks for breast cancer, which includes their family hist ory. At that time, you may recommend for more screening tests (Ultrasound or MRI) as they might be us eful based on their risk. A negative radiographic report should not delay biopsy if a dominant or clinically suspicious mass is present. Up to ten percent of cancers are not identified on mammography. A negative report may reinforce clinical impression. Adenosis and dense breasts may obscure an underlying neoplasm. False positive reports average 6 to 10%. Patient will receive a letter notifying them of these results.
== END 2021-10-04 00:52 ==
PROVIDERS: PCP Nurse Practitioner Adult Health; Visit Provider Nurse Practitioner Adult Health
DX: Z12.31 Encounter for screening mammogram for malignant neoplasm of breast (principal)
CPT/HCPCS: 77063; 77067

== ENCOUNTER 2021-11-18 01:58 | Outpatient (CLI) | payer MEDICARE, OTHER, SELFPAY ==
[2021-11-18 09:16] LABS: Anion Gap 7.4 mmol/L (3-11); BUN 12 mg/dL (7-18); CO2 29.6 mmol/L (21.0-32.0); CREATININE 0.8 mg/dL (0.55-1.02); Calcium 9.2 mg/dL (8.5-10.1); Chloride 105 mmol/L (98-107); Glucose 96 mg/dL (74-106); Sodium 142 mmol/L (136-145)
== END 2021-11-18 01:59 | disposition home or self-care (01) ==
LOC: LBO 01:58
PROVIDERS: PCP Nurse Practitioner Adult Health; Visit Provider Nurse Practitioner Adult Health
DX: Z79.1 Long term (current) use of non-steroidal anti-inflammatories (NSAID) (principal); M54.59 Other low back pain
CPT/HCPCS: 36415; 80048

== ENCOUNTER 2022-11-24 00:38 | Outpatient (CLI) | payer MEDICARE, OTHER, SELFPAY ==
--- NOTE | 2022-11-24 07:30 | DI.MAMMO_ITS ---
Exam(s) MAMMO SCREENING EXAM: MAMMO SCREENING CLINICAL HISTORY: screening,z12.39 TECHNIQUE: Bilateral full field digital CC and MLO mammographic images were obtained with 3D tomosyn thesis and utilizing computer aided detection (CAD). COMPARISON: Available for comparison. FINDINGS: Masses/Architectural Distortion: None seen. Microcalcifications: No suspicious pleomorphic-type are seen. Skin Thickening/Nipple Retraction: None. IMPRESSION: 1. No significant interval change with no specific features of malignancy noted. 2. Unless there is more urgent need, screening mammography is recommended, as per [employer] guidelines. BI-RADS Category 1 - Negative Breast Density - Category B - Scattered areas of fibroglandular density Breast density category C or D implies that the patient has dense breast tissue. Dense breast tissue is very common and is not abnormal but dense breast tissue can make it harder to find cancer on a ma mmogram. Also, dense breast tissue may increase their breast cancer risk. This information about the result of the mammogram report was provided to the patient to raise their awareness. Use this report when you speak with the patient about their risks for breast cancer, which includes their family hist ory. At that time, you may recommend for more screening tests (Ultrasound or MRI) as they might be us eful based on their risk. A negative radiographic report should not delay biopsy if a dominant or clinically suspicious mass is present. Up to ten percent of cancers are not identified on mammography. A negative report may reinforce clinical impression. Adenosis and dense breasts may obscure an underlying neoplasm. False positive reports average 6 to 10%. Patient will receive a letter notifying them of these results.
== END 2022-11-24 00:58 ==
LOC: DI 00:38
PROVIDERS: PCP Nurse Practitioner Adult Health; Visit Provider Nurse Practitioner Adult Health
DX: Z12.31 Encounter for screening mammogram for malignant neoplasm of breast (principal)
CPT/HCPCS: 77063; 77067

== ENCOUNTER → 2024-01-08 03:45 | Outpatient (CLI) | payer MEDICARE, OTHER, SELFPAY ==
--- NOTE | 2024-01-08 15:19 | DI.MAMMO_ITS ---
Exam(s) MAMMO SCREENING EXAM: MAMMO SCREENING CLINICAL HISTORY: screening,Z12.39. TECHNIQUE: Bilateral full field digital CC and MLO mammographic images were obtained with 3D tomosyn thesis and utilizing computer aided detection (CAD). COMPARISON: Prior mammograms were reviewed. FINDINGS: There has been no significant change in the appearance and distribution of the fibroglandular tissue. There are no CAD designations. There are no new spiculated masses nor malignant appearing microcalcification groups. There is no significant architectural distortion nor skin thickening-retraction. IMPRESSION: No radiographic evidence of malignancy. BI-RADS Category 1 - Negative Breast Density - Category B - Scattered areas of fibroglandular density Breast density Category C or D implies that the patient has dense breast tissue. Dense breast tissue can make it harder to find cancer on a mammogram. Dense breast tissue is also associated with an incr eased risk of breast cancer. This information about the result of the mammogram report was provided to the patient to raise their awareness. Use this report when you speak with the patient about their risks for breast cancer, which includes their family history. At that time, you may recommend additional screening tests (Ultrasoun d or MRI) as these tests may add significant information. A negative radiographic report should not delay biopsy if a dominant or clinically suspicious mass is present. Up to ten percent of cancers are not identified on mammography. A negative report may reinforce clinical impression. Adenosis and dense breasts may obscure an underlying neoplasm. False positive reports average 6 to 10%. Patient will receive a letter notifying them of these results.
== END ==
PROVIDERS: PCP Nurse Practitioner Adult Health; Visit Provider Nurse Practitioner Adult Health
DX: Z12.31 Encounter for screening mammogram for malignant neoplasm of breast (principal)
CPT/HCPCS: 77063; 77067

== ENCOUNTER 2024-01-08 04:31 | Outpatient (CLI) | payer MEDICARE, OTHER, SELFPAY ==
[2024-01-08 15:58] LABS: Anion Gap 11.7 mmol/L (3-11); BUN 13 mg/dL (7-18); CO2 26.3 mmol/L (21.0-32.0); CREATININE 0.9 mg/dL (0.55-1.02); Calcium 8.9 mg/dL (8.5-10.1); Chloride 105 mmol/L (98-107); Glucose 120 mg/dL (74-106); Potassium 4.1 mmol/L (3.5-5.1); Sodium 143 mmol/L (136-145)
== END 2024-01-08 04:32 | disposition home or self-care (01) ==
LOC: LBO 04:31
PROVIDERS: PCP Nurse Practitioner Adult Health; Visit Provider Nurse Practitioner Adult Health
DX: Z79.1 Long term (current) use of non-steroidal anti-inflammatories (NSAID) (principal); J45.30 Mild persistent asthma, uncomplicated
CPT/HCPCS: 36415; 80048

== ENCOUNTER 2024-12-28 10:57 | Inpatient (IN) | payer MEDICARE, OTHER, SELFPAY ==
[2024-12-28] VITALS (71 sets, daily range): BP systolic 91–165; BP diastolic 43–137; PULSE 93–144; RESP 9–30; TEMP 36.9–37.4; O2SAT 88–99
--- NOTE | 2024-12-28 11:00 | DI.RAD_ITS ---
Exam(s) XR CHEST 2V PA LATERAL EXAM: XR CHEST 2V PA LATERAL CLINICAL HISTORY: cough TECHNIQUE: 2D digital imaging was performed. Two views. COMPARISON: CR XR thoracic spine complete from 01/24/2019 FINDINGS: HEART: Normal size. Aorta: Not dilated. Mildly ectatic. PULMONARY VASCULATURE: Normal. MEDIASTINUM: Unremarkable. LUNGS: Mild fibrotic changes. Question of mild infiltrate left lower lobe. PLEURAL SPACE: Tiny bilateral pleural effusions. No pneumothorax. BONE:Unremarkable for age. SOFT TISSUES: Unremarkable. IMPRESSION: Question of mild infiltrate at the left lower lobe. Tiny bilateral pleural effusions. DATA REPOSITORY: RADIATION DOSE DELIVERED:
[2024-12-28 11:16] LABS: Abs Immature Grans 0.19 10^3/uL (0.0-0.06); Absolute Basophil Count 0.08 10^3/uL (0.0-0.2); Absolute Eosinophil Count 0.18 10^3/uL (0.0-0.7); Basophils % 0.4 %; Eosinophils % 0.9 %; HCT 42.5 % (36.0-46.0); HGB 14.2 g/dL (11.2-15.7); Lymphocytes % 1.5 %; MCH 28.9 pg (27.0-33.0); MCHC 33.4 % (32.0-36.0); MCV 86 fL (80-95); MPV 8.7 fL (8.0-11.0); Monocytes % 1.6 %; Neutrophils % 94.6 %; Platelet Count 267 10^3/uL (130-400); RBC 4.92 10^6/uL (3.93-5.22); RDW 12.8 % (11.7-14.6); RDW-SD 40.3 fL; WBC 19.62 10^3/uL (4.4-10.8)
[2024-12-28 11:19] LABS: Absolute Lymphocyte Count 0.29 10^3/uL (1.2-3.4); Absolute Monocyte Count 0.31 10^3/uL (0.1-0.8); Absolute Neutrophil Count 18.56 10^3/uL (1.2-6.7)
[2024-12-28] MEDS: Albuterol/Ipratropium 3 ML UPD VIAL UPD ×2 (11:34→19:58)
[2024-12-28] MEDS: Lactated Ringers 1,000 ML 1000 ML IV (11:35)
--- NOTE | 2024-12-28 11:42 | W.ED.GENAD ---
Discharge Plan Disposition Patient Disposition: Admit to [facility] Condition: Stable Discharge Details Chief Complaint: RespSymp Clinical Impression: Influenza A, Pneumonia, Hypoxemia Primary Care Provider: Elis Jiménez ED Provider: Alda Veras Home Meds and New Rx's Prescriptions: No Action fluticasone propionate 50 mcg/actuation spray,suspension See Rx Instructions .ROUTE .COMPLEX Qty: 16 6RF Dose Instruction: INSTILL 1 TO 2 SPRAYS INTO EACH NOSTRIL DAILY NEEDED FOR ALLERGY SYMPTOMS Rx Instructions: INSTILL 1 TO 2 SPRAYS INTO EACH NOSTRIL DAILY NEEDED FOR ALLERGY SYMPTOMS meloxicam 15 mg tablet 7.5 - 15 mg PO DAILY PRN (Reason: scoliosis pain) Qty: 90 3RF Rx Instructions: Use the lowest effective dose; do not mix with other NSAIDs sodium chloride [Saline Nasal] 0.65 % aerosol,spray 1 spray ROVERTO Q1-4H PRN ibuprofen 200 mg tablet 400 mg PO Q6H PRN fluticasone propion-salmeterol 250-50 mcg/dose blister with device See Rx Instructions .ROUTE .COMPLEX Qty: 60 11RF Dose Instruction: INHALE ONE PUFF BY MOUTH TWICE A DAY Rx Instructions: INHALE ONE PUFF BY MOUTH TWICE A DAY albuterol sulfate [Ventolin HFA] 90 mcg/actuation HFA aerosol inhaler 1 - 2 puff IH Q4H PRN (Reason: asthma) Qty: 6.7 3RF Acetaminophen [Tylenol] 500 mg PO Q4H PRN PRNQty: 30 0RF HPI General Date/Time Provider Initiated Documentation: 12/28/24 11:04. Limitations to Documentation: no limitations. Information obtained by: patient, family and RN notes reviewed. History of Present Illness 74 year old F presents to the emergency department with the chief complaint of cough, congestion, fever, weakness, general unwell, described as moderate, Quality is described as other (denies any pain), Patient started experiencing this day(s) (7) and it has been constant. No relieving factors improve symptom(s), Movement worsens symptoms . Patient notes cough, diaphoresis, fever/chills, headaches, loss of appetite, malaise and shortness of breath; denies chest pain, nausea/vomiting and rash. Patient did receive the following treatments prior to arrival, none Related Data Home Medications ?Medication ?Instructions ?Recorded ?Confirmed sodium chloride 0.65 % nasal spray 1 spray intranasal Q1-4H PRN 01/24/19 12/28/24 aerosol (Saline Nasal) Acetaminophen [Tylenol] 500 mg PO Q4H PRN PRN #30 caps 01/06/21 12/28/24 ibuprofen 200 mg tablet 400 mg PO Q6H PRN 09/26/21 12/28/24 fluticasone propionate 50 See Rx Instructions .Route 01/07/24 12/28/24 mcg/actuation nasal .COMPLEX #16 grams spray,suspension meloxicam 15 mg tablet 7.5 - 15 mg (0.5 - 1 x 15 mg) PO 01/07/24 12/28/24 DAILY PRN scoliosis pain #90 tabs fluticasone 250 mcg-salmeterol 50 See Rx Instructions .Route 10/23/24 12/28/24 mcg/dose blistr powdr for .COMPLEX #60 blisters inhalation albuterol sulfate 90 mcg/actuation 1 - 2 puff inhalation Q4H PRN 12/11/24 12/28/24 aerosol inhaler (Ventolin HFA) asthma #6.7 grams Previous Rx's ?Medication ?Instructions ?Recorded Acetaminophen [Tylenol] 500 mg PO Q4H PRN PRN #30 caps 01/06/21 fluticasone propionate 50 See Rx Instructions .Route 01/07/24 mcg/actuation nasal .COMPLEX #16 grams spray,suspension meloxicam 15 mg tablet 7.5 - 15 mg (0.5 - 1 x 15 mg) PO 01/07/24 DAILY PRN scoliosis pain #90 tabs fluticasone 250 mcg-salmeterol 50 See Rx Instructions .Route 10/23/24 mcg/dose blistr powdr for .COMPLEX #60 blisters inhalation albuterol sulfate 90 mcg/actuation 1 - 2 puff inhalation Q4H PRN 12/11/24 aerosol inhaler (Ventolin HFA) asthma #6.7 grams Allergies Allergy/AdvReac Type Severity Reaction Status Date / Time No Known Allergies Allergy Unverified 01/07/24 09:18 General Stated Complaint: RespSymp MAREK: 3 Review of Systems Constitutional Constitutional: Reports as per HPI and Denies headache(s) Eyes Eyes: Reports as per HPI, Denies eye discharge and Denies irritation ENT Ears, Nose, Mouth, and Throat: Reports as per HPI and Denies headache(s) Cardiovascular Cardiovascular: Reports as per HPI, Denies chest pain and Denies dyspnea Respiratory Respiratory: Reports as per HPI and Denies dyspnea Gastrointestinal Gastrointestinal: Reports as per HPI, Denies abdominal pain, Denies change in bowel habits, Denies nausea and Denies vomiting Integumentary/Breasts Skin/Breast: Reports as per HPI and Denies rash Neurologic Neurologic: Reports as per HPI and Denies headache(s) Exam Const General: cooperative, comfortable, no acute distress, well developed, well groomed and ill appearing acutely (appears fatigued) Nutritional Appearance: average body habitus and well nourished Orientation: alert and awake [facility] Head: normal to inspection, normocephalic and atraumatic Ears: hearing grossly normal bilaterally General nose exam: external nose normal and nares normal Face and sinus: normal facial exam, sinuses nontender and face symmetric Mouth: oral mucosae normal, lip normal, tongue normal, oropharynx normal and moist mucous membranes Teeth and gingiva: dentition normal Throat: posterior oropharynx normal and tonsils normal Eyes General: appearance normal, both eyes and all related structures Neck Neck: normal visual inspection, full ROM and no lymphadenopathy Resp Effort & Inspection: normal respiratory effort, able to speak in complete sentences and no respiratory distress Auscultation: crackles on the left at the base, no rales, no rhonchi and no wheezes Cardio Rate: tachycardic Rhythm: regular rhythm Heart Sounds: S1 normal and S2 normal Skin General skin exam: no rashes or lesions noted Neuro General: patient alert and patient awake Cognition: normal cognition Speech: speech normal Gait: normal gait Extrem General: normal to inspection, no pedal edema and no calf tenderness Course Vital Signs Vital signs: Vital Signs Temperature 36.9 C 12/28/24 11:01 Pulse 124 H 12/28/24 11:01 Respiratory Rate 30 H 12/28/24 11:01 Blood Pressure 150/63 H 12/28/24 11:01 Pulse Oximetry 93 12/28/24 11:01 Temperature 36.9 C 12/28/24 11:05 Temperature Source Oral 12/28/24 11:05 Pulse 124 H 12/28/24 11:05 Respiratory Rate 30 H 12/28/24 11:05 Respiratory Effort Short of Breath 12/28/24 11:05 Respiratory Depth Normal 12/28/24 11:05 Blood Pressure 150/63 H 12/28/24 11:05 Blood Pressure Position Sitting 12/28/24 11:05 Pulse Oximetry 93 12/28/24 11:05 Oxygen Delivery Method Room Air 12/28/24 11:05 Oxygen Flow Rate 0 12/28/24 11:05 Lab/Test Results Lab/Test Results: Laboratory Tests Range/Units 12/28/24 11:10 WBC (4.4-10.8) 10^3/uL 19.62 H RBC (3.93-5.22) 10^6/uL 4.92 Hgb (11.2-15.7) g/dL 14.2 Hct (36.0-46.0) % 42.5 MCV (80-95) fL 86 MCH (27.0-33.0) pg 28.9 MCHC (32.0-36.0) % 33.4 RDW (11.7-14.6) % 12.8 Plt Count (130-400) 10^3/uL 267 MPV (8.0-11.0) fL 8.7 Immature Gran % % 1.0 Neutrophils % % 94.6 Lymphocytes % % 1.5 Monocytes % % 1.6 Eosinophils % % 0.9 Basophils % % 0.4 Nucleated RBC % (0.0-0.3) % 0.0 Absolute Neutrophils (1.2-6.7) 10^3/uL 18.56 H Absolute Lymphocytes (1.2-3.4) 10^3/uL 0.29 L Absolute Monocytes (0.1-0.8) 10^3/uL 0.31 Absolute Eosinophils (0.0-0.7) 10^3/uL 0.18 Absolute Basophils (0.0-0.2) 10^3/uL 0.08 Sodium Cancelled Potassium Cancelled Chloride Cancelled Carbon Dioxide Cancelled Anion Gap Cancelled BUN Cancelled Creatinine Cancelled Est GFR (CKD-EPI 2020) Cancelled Glucose Cancelled Calcium Cancelled Total Bilirubin Cancelled AST Cancelled ALT Cancelled Alkaline Phosphatase Cancelled Total Protein Cancelled Albumin Cancelled Medical Decision Making Patient is a pleasant 74-year-old female, brought in by her children accompanied by her who also has similar illness, presenting with 7 days of general unwell. She reports that she has had sinus pressure initially, this has began to improve. States that she has had congestion, cough with small amount of sputum which began to come up yesterday. She denies any GI upset. No rashes. Patient does have asthma but states that she has not been increasing the amount of use of her albuterol as she is not sure if this is actually been helping with her symptoms. on exam, patient appears unwell and fatigued. She is notably tachycardic with a heart rate in the 120s. While did not appreciate any significant wheezing, patient is tachypneic and slightly hypoxic. With her history of asthma we will give breathing treatment. Patient does have crackles on exam particular left lower lobe will obtain chest x-ray to evaluate for potential pneumonia. Also consider viral etiology and will obtain COVID, flu testing. Patient does appear dehydrated will begin her on IV fluids. Do not see any evidence to suggest PE, ACS Labs reviewed, positive for flu A. White count of 19.6. CMP significant for sodium of 132, potassium 3.4. FINDINGS: Lungs: Mild left lower lobe infiltrate/pneumonia. Pleural spaces: Unremarkable. No pleural effusion. No pneumothorax. Heart/Mediastinum: Unremarkable. No cardiomegaly. Bones/joints: Unremarkable. IMPRESSION: Left lower lobe pneumonia. Patient is significantly improving with IV fluids. An attempt to reveal to get her home with Family, will start her on oral antibiotics. given Augmentin and Doxy. As she is well to the 48-hour window, will hold off on antivirals at this time and continue to reassess the patient. Patient became very winded with road testing. Dropping her oxygen into the high 80s when at rest. With this, I do feel that admission is appropriate. She is feeling slightly improved after the IV hydration and her tachycardia has been improving as well. She remains hemodynamically stable in regard to blood pressure. However, with her oxygen demand admission is appropriate. Spoke with the patient who is in agreement with this plan. Consulted with hospitalist who also agrees. As she is now being admitted and is positive for flu A, will also begin her on antivirals. This documentation was generated using Uncov[employer]ation system, please disregard any oddities of phrase or misspellings. Quality:SDOH Health Related Social Needs: No Data to Display PFSH All Active Problems (Updated 12/28/24 @ 16:28 by SYLVAIN Oleary) Hypoxemia (Acute) Pneumonia (Acute) Influenza A (Acute) Spider veins (Chronic) NSAID long-term use (Acute) Ganglion cyst of wrist (Acute) Arthrosis of first carpometacarpal joint (Acute) L; x-ray 12/2019 Scoliosis (Chronic) Allergic rhinitis due to pollen (Chronic) [place] [employer]ger consultation 2017: Saline spray, azelastine spray, ventolin, prednisone PRN, fluticasone, symbicort, zyrtec Insomnia (Chronic) h/o clonazepam use 01/04/21 [place] [facility] [place] Moderate persistent asthma (Chronic) Medical History (Updated 12/28/24 @ 16:28 by SYLVAIN Oleary) COVID (~06/2023) Dermatofibroma Reyes angioma Multiple benign melanocytic nevi of upper extremity, lower extremity, and trunk Seborrheic keratoses Lentigines Actinic cheilitis COPD (chronic obstructive pulmonary disease) Pt. states she has damage to her bronchi due to a severe bought of bronchitis in her 20's Palpitations Pt. stated had cardiac work-up in [place], per pt. stated MD told her she did not need to have any tx at the time, states occasionally she will get palpitations but they don't amount to much. Pt. states she is very active. Rhinitis Melanoma In situ, left upper inner arm s/p WLE 09/2015 Derm consultation (last 2016, no evidence of recurrence) q6m in [place] Surgical History Status post laparoscopy-assisted vaginal hysterectomy (~12/2020) LAVH, BSO, anterior colporrhaphy, Callahan's culdoplasty Status post D&C Status post surgical removal of malignant neoplasm of skin Family History (Updated 01/07/24 @ 09:45 by Roxanne Roth) Son Family history of thyroid problem Asthma Arthritis Father Stroke Diabetes Mother Diabetes Breast cancer Asthma Arthritis Cancer Skin Heart disease Sister Diabetes Arthritis Maternal Grandmother Heart disease Maternal Uncle Alcohol use disorder Social History (Updated 01/07/24 @ 09:42 by Roxanne Roth) Smoking/Tobacco Use Status: Never Smoking risk assessment performed?: Yes Alcohol Intake: current Alcohol Intake frequency: a few times a week Drug use: Never Substance use type: does not use Adopted: No Caregiver/Support person: No Foster care: No Household members: spouse Housing: house Number of Children: 1 Communication Needs: None Education Level: master's degree Do you need help understanding health information?: Never current occupation: Retired self-employed PT Pets and animals: No Sexually active: Yes Do you think of yourself as: straight/heterosexual Current gender identity: female What is your relationship status?: How often do you talk on the phone with friends or family?: once per week How often do you get together with friends or relatives?: never How often do you attend scientologist or denominational services?: decline to answer Do you belong to any clubs or organized social groups?: no Panel score (0-1 are the most socially isolated patients): 1 What type of physical activity do you participate in: independent ambulation, aerobic, regular exercise, swimming and other Details: Figure skating, cross country skiing, gardening, health gymnastics Duration: 30-45 minutes/day Frequency: daily Seatbelt use: always Helmet use: Yes (If required) Helmet use: sometimes Drive intox or ride w/intox city bus driver: No Do you feel safe at home: Yes Do you feel safe in your relationship?: Yes Additional Social history: Lives with & son
--- NOTE | 2024-12-28 12:04 | DI.VRAD_ITS ---
PROCEDURE INFORMATION: Exam: XR Chest Exam date and time: 12/28/2024 11:17 AM Age: 74 years old Clinical indication: Cough TECHNIQUE: Imaging protocol: Radiologic exam of the chest. Views: 2 views. COMPARISON: CR XR thoracic spine complete 01/24/2019 1:05 PM FINDINGS: Lungs: Mild left lower lobe infiltrate/pneumonia. Pleural spaces: Unremarkable. No pleural effusion. No pneumothorax. Heart/Mediastinum: Unremarkable. No cardiomegaly. Bones/joints: Unremarkable. IMPRESSION: Left lower lobe pneumonia. Dictated and Authenticated by: Jasmyn Pérez MD. Orderin Eda Lizama MD
[2024-12-28 12:07] LABS: ALT 20 U/L (14-59); AST 18 U/L (15-37); Albumin 2.6 g/dL (3.4-5.0); Alkaline Phosphatase 99 U/L (46-116); Anion Gap 7.3 mmol/L (3-11); BUN 17 mg/dL (7-18); Bilirubin, Total 0.77 mg/dL (0.2-1.0); CO2 27.7 mmol/L (21.0-32.0); Chloride 97 mmol/L (98-107); Estimated GFR 59.49 (mL/min/1.73m2); Glucose 148 mg/dL (74-106); Potassium 3.4 mmol/L (3.5-5.1); Sodium 132 mmol/L (136-145); Total Protein 6.4 g/dL (6.4-8.2)
[2024-12-28 12:42] LABS: COVID-19 PCR Negative (Negative); Influenza A PCR Positive (Negative); Influenza B PCR Negative (Negative); RSV PCR Negative (Negative)
[2024-12-28 12:44] LABS: Source Nasopharynx
[2024-12-28] MEDS: Doxycycline Hyclate 100 MG CAP PO (13:22)
[2024-12-28] MEDS: Amoxicillin 875/Clav. 125 TAB PO (13:22)
[2024-12-28] MEDS: Ondansetron O.D.T. 4 MG TABEF PO (14:33)
--- NOTE | 2024-12-28 16:36 | W.PM.HP.N ---
Date of service: 12/28/24 Time of Service: 16:37 Assessment and Plan Assessment and plan (1) Sepsis without septic shock: Status: Acute Assessment and plan: meets criteria for sespis with elevated WBC, tachycardia and tachypnea blood pressure stable (2) Acute hypoxic respiratory failure: Status: Acute Assessment and plan: requiring oxygen by [place] to maintain sats with ambulation wean as able pulmonary toileting, I/S and acapella treatment for pneumonia, influenza and copd (3) Influenza A: Status: Acute Assessment and plan: tamiflu, (4) Pneumonia: Status: Acute Assessment and plan: Ceftriaxone and azithromycin day 1 of 5 Wean oxygen as able Scheduled DuoNebs with albuterol as needed I-S and acapella Mucinex (5) COPD exacerbation: Status: Acute Assessment and plan: Prednisone burst See above (6) Discharge planning issues: Status: Acute Assessment and plan: DVT prophylaxis enoxaparin daily Discharge planning issues anticipated discharge to home with no new services once medically stable and weaned off oxygen discussed with DR Silva History of Present Illness Narrative: This is a 74-year-old female patient past medical history significant for COPD no home oxygen who presented to the emergency department with complaints of shortness of breath, cough fever congestion generalized weakness has been going on for approximately 1 week. Her has similar symptoms. Workup in the emergency department did show influenza A, infiltrate on the left lower lobe on chest x-ray. She was tachycardic received IV fluids with improvement in her heart rate. She was tachypneic required 2 L nasal cannula to maintain sats in the low 90s. She received Augmentin and doxycycline in anticipation of being discharged home. Initially not started on Tamiflu as she has had her symptoms for 1 week. Unfortunately she was unable to be weaned off oxygen and hospitalist services asked to admit to the medical surgical unit. Does meet sepsis criteria with tachycardia tachypnea and elevated white count. Blood pressure stable in the 140s over 90s so not in septic shock. Heart rate was responsive to IV fluids. She will be admitted to the hospitalist services for further management. We will bring her in on Tamiflu, ceftriaxone, azithromycin, and oral steroids to treat COPD exacerbation also. [facility] All Active Problems (Updated 12/28/24 @ 17:42 by Adelaide Grant NP) Discharge planning issues (Acute) COPD exacerbation (Acute) Acute hypoxic respiratory failure (Acute) Sepsis without septic shock (Acute) Hypoxemia (Acute) Pneumonia (Acute) Influenza A (Acute) Spider veins (Chronic) NSAID long-term use (Acute) Ganglion cyst of wrist (Acute) Arthrosis of first carpometacarpal joint (Acute) L; x-ray 12/2019 Scoliosis (Chronic) Allergic rhinitis due to pollen (Chronic) [place] [employer] consultation 2017: Saline spray, azelastine spray, ventolin, prednisone PRN, fluticasone, symbicort, zyrtec Insomnia (Chronic) h/o clonazepam use 01/04/21 Pt denies [facility] [place] Moderate persistent asthma (Chronic) Medical History (Updated 12/28/24 @ 17:42 by Adelaide Grant NP) COVID (~06/2023) Dermatofibroma Reyes angioma Multiple benign melanocytic nevi of upper extremity, lower extremity, and trunk Seborrheic keratoses Lentigines Actinic cheilitis COPD (chronic obstructive pulmonary disease) Pt. states she has damage to her bronchi due to a severe bought of bronchitis in her 20's Palpitations Pt. stated had cardiac work-up in [place], per pt. stated MD told her she did not need to have any tx at the time, states occasionally she will get palpitations but they don't amount to much. Pt. states she is very active. Rhinitis Melanoma In situ, left upper inner arm s/p WLE 09/2015 Derm consultation (last 2016, no evidence of recurrence) q6m in [place] Surgical History Status post laparoscopy-assisted vaginal hysterectomy (~12/2020) LAVH, BSO, anterior colporrhaphy, Callahan's culdoplasty Status post D&C Status post surgical removal of malignant neoplasm of skin Family History (Updated 01/07/24 @ 09:45 by Roxanne Roth) Son Family history of thyroid problem Asthma Arthritis Father Stroke Diabetes Mother Diabetes Breast cancer Asthma Arthritis Cancer Skin Heart disease Sister Diabetes Arthritis Maternal Grandmother Heart disease Maternal Uncle Alcohol use disorder Social History (Updated 01/07/24 @ 09:42 by Roxanne Roth) Smoking/Tobacco Use Status: Never Smoking risk assessment performed?: Yes Alcohol Intake: current Alcohol Intake frequency: a few times a week Drug use: Never Substance use type: does not use Adopted: No Caregiver/Support person: No Foster care: No Household members: spouse Housing: house Number of Children: 1 Communication Needs: None Education Level: master's degree Do you need help understanding health information?: Never current occupation: Retired self-employed PT Pets and animals: No Sexually active: Yes Do you think of yourself as: straight/heterosexual Current gender identity: female What is your relationship status?: How often do you talk on the phone with friends or family?: once per week How often do you get together with friends or relatives?: never How often do you attend presybeterian or congregation services?: decline to answer Do you belong to any clubs or organized social groups?: no Panel score (0-1 are the most socially isolated patients): 1 What type of physical activity do you participate in: independent ambulation, aerobic, regular exercise, swimming and other Details: Figure skating, cross country skiing, gardening, health gymnastics Duration: 30-45 minutes/day Frequency: daily Seatbelt use: always Helmet use: Yes (If required) Helmet use: sometimes Drive intox or ride w/intox services delivery driver: No Do you feel safe at home: Yes Do you feel safe in your relationship?: Yes Additional Social history: Lives with & son Meds Allergies and Home Medications Allergies Allergy/AdvReac Type Severity Reaction Status Date / Time No Known Allergies Allergy Unverified 01/07/24 09:18 Home Medications ?Medication ?Instructions ?Recorded ?Confirmed ?Type sodium chloride 0.65 % nasal spray 1 spray intranasal Q1-4H PRN 01/24/19 12/28/24 History aerosol (Saline Nasal) Acetaminophen [Tylenol] 500 mg PO Q4H PRN PRN #30 caps 01/06/21 12/28/24 Rx ibuprofen 200 mg tablet 400 mg PO Q6H PRN 09/26/21 12/28/24 History fluticasone propionate 50 See Rx Instructions .Route 01/07/24 12/28/24 Rx mcg/actuation nasal .COMPLEX #16 grams spray,suspension meloxicam 15 mg tablet 7.5 - 15 mg (0.5 - 1 x 15 mg) PO 01/07/24 12/28/24 Rx DAILY PRN scoliosis pain #90 tabs fluticasone 250 mcg-salmeterol 50 See Rx Instructions .Route 10/23/24 12/28/24 Rx mcg/dose blistr powdr for .COMPLEX #60 blisters inhalation albuterol sulfate 90 mcg/actuation 1 - 2 puff inhalation Q4H PRN 12/11/24 12/28/24 Rx aerosol inhaler (Ventolin HFA) asthma #6.7 grams Results Labs 12/28/24 11:10 12/28/24 11:40 Labs: Laboratory Results - last 24 hr 12/28/24 12/28/24 12/28/24 11:10 11:40 11:45 WBC 19.62 H RBC 4.92 Hgb 14.2 Hct 42.5 MCV 86 MCH 28.9 MCHC 33.4 RDW 12.8 Plt Count 267 MPV 8.7 Immature Gran % 1.0 Neutrophils % 94.6 Lymphocytes % 1.5 Monocytes % 1.6 Eosinophils % 0.9 Basophils % 0.4 Nucleated RBC % 0.0 Absolute Neutrophils 18.56 H Absolute Lymphocytes 0.29 L Absolute Monocytes 0.31 Absolute Eosinophils 0.18 Absolute Basophils 0.08 Sodium Cancelled 132 L Potassium Cancelled 3.4 L Chloride Cancelled 97 L Carbon Dioxide Cancelled 27.7 Anion Gap Cancelled 7.3 BUN Cancelled 17 Creatinine Cancelled 1.0 Est GFR (CKD-EPI 2020) Cancelled 59.49 Glucose Cancelled 148 H Calcium Cancelled 8.0 L Total Bilirubin Cancelled 0.77 AST Cancelled 18 ALT Cancelled 20 Alkaline Phosphatase Cancelled 99 Total Protein Cancelled 6.4 Albumin Cancelled 2.6 L COVID-19 Source Nasopharynx SARS-CoV-2 (PCR) Negative Influenza Type A (PCR) Positive A Influenza Type B (PCR) Negative RSV (PCR) Negative Last Vital Signs Temp 36.9 C 12/28/24 11:05 Pulse 120 H 12/28/24 12:50 Resp 20 12/28/24 12:50 BP 130/58 L 12/28/24 12:45 Pulse Ox 91 L 12/28/24 12:50 Time Spent Time spent with Patient: 55-74 minutes Time was spent: preparing to see the patient(eg.review tests), obtaining and/or reviewing separately otained hiistory, ordering medications,tests, procedures, indepentently interpreting results and counseling the patient
--- NOTE | 2024-12-28 17:16 | W.PC.ACHO ---
Registration Status: Primary Language: Preferred Language: ED Information & Data Chief Complaint RespSymp 12/28/24 12:49 Triage Note nausea, vomiting, cough, SOB 12/28/24 11:01 w/rest x 2 days, voice change. also sick. Family concerned the PT seems more confused than normal. Observed low O2 (88% ) after walking into room. Medical / Surgical History (Last Updated 01/07/24 @ 10:16 by Elis Jiménez NP) COVID (~06/2023) Dermatofibroma Reyes angioma Multiple benign melanocytic nevi of upper extremity, lower extremity, and trunk Seborrheic keratoses Lentigines Actinic cheilitis COPD (chronic obstructive pulmonary disease) Palpitations Rhinitis Melanoma (Last Reviewed 01/07/24 @ 09:41 by Elis Jiménez NP) Status post laparoscopy-assisted vaginal hysterectomy (~12/2020) Status post D&C Status post surgical removal of malignant neoplasm of skin Most Recent Vital Signs Temperature 36.9 C 12/28/24 11:05 Temperature Source Oral 12/28/24 11:05 Pulse 120 H 12/28/24 12:50 Pulse 119 H 12/28/24 12:50 Respiratory Rate 20 12/28/24 12:50 Respiratory Effort Short of Breath 12/28/24 11:05 Respiratory Depth Normal 12/28/24 11:05 Blood Pressure 130/58 L 12/28/24 12:45 Blood Pressure Mean 75 12/28/24 12:45 Blood Pressure Position Sitting 12/28/24 11:05 Pulse Oximetry 91 L 12/28/24 12:50 Oxygen Delivery Method Room Air 12/28/24 11:05 Oxygen Flow Rate 0 12/28/24 11:05 Allergies No Known Allergies Allergy (Unverified 01/07/24 09:18) IV IV Catheter Type [Right Peripheral IV Antecubital] IV Catheter Gauge [Right 18 Antecubital] Diagnostics 12/28/24 12/28/24 12/28/24 Range/Units 11:45 11:40 11:10 WBC 19.62 H (4.4-10.8) 10^3/uL RBC 4.92 (3.93-5.22) 10^6/uL Hgb 14.2 (11.2-15.7) g/dL Hct 42.5 (36.0-46.0) % MCV 86 (80-95) fL MCH 28.9 (27.0-33.0) pg MCHC 33.4 (32.0-36.0) % RDW 12.8 (11.7-14.6) % Plt Count 267 (130-400) 10^3/uL MPV 8.7 (8.0-11.0) fL Immature Gran % 1.0 % Neutrophils % 94.6 % Lymphocytes % 1.5 % Monocytes % 1.6 % Eosinophils % 0.9 % Basophils % 0.4 % Nucleated RBC % 0.0 (0.0-0.3) % Absolute Neutrophils 18.56 H (1.2-6.7) 10^3/uL Absolute Lymphocytes 0.29 L (1.2-3.4) 10^3/uL Absolute Monocytes 0.31 (0.1-0.8) 10^3/uL Absolute Eosinophils 0.18 (0.0-0.7) 10^3/uL Absolute Basophils 0.08 (0.0-0.2) 10^3/uL Sodium 132 L Cancelled Potassium 3.4 L Cancelled Chloride 97 L Cancelled Carbon Dioxide 27.7 Cancelled Anion Gap 7.3 Cancelled BUN 17 Cancelled Creatinine 1.0 Cancelled Est GFR (CKD-EPI 2020) 59.49 Cancelled Glucose 148 H Cancelled Calcium 8.0 L Cancelled Total Bilirubin 0.77 Cancelled AST 18 Cancelled ALT 20 Cancelled Alkaline Phosphatase 99 Cancelled Total Protein 6.4 Cancelled Albumin 2.6 L Cancelled COVID-19 Source Nasopharynx SARS-CoV-2 (PCR) Negative (Negative) Influenza Type A (PCR) Positive A (Negative) Influenza Type B (PCR) Negative (Negative) RSV (PCR) Negative (Negative) Intake and Output - 24 Hour Total 12/28/24 10:57 thru 12/28/24 13:45 Intake Total 1000 Balance 1000 Weight 68.039 kg Intake: IV 1000 Falls Risk Assessment History of Falls No History 12/28/24 11:05 Contributing Factors No Factors 12/28/24 11:05 Ambulatory Aids Independent 12/28/24 11:05 Tubes/Lines None 12/28/24 11:05 Gait Evaluation No gait disturbance 12/28/24 11:05 Cognition No cognitive impairment 12/28/24 11:05 Fall Total Score 0 12/28/24 11:05 Level of Risk Standard/Low Risk 12/28/24 11:05 Problems (Last Updated 01/07/24 @ 10:16 by Elis Jiménez NP) COPD exacerbation (Acute) Acute hypoxic respiratory failure (Acute) Sepsis without septic shock (Acute) Hypoxemia (Acute) Pneumonia (Acute) Influenza A (Acute) v v v v v v v v v Sending and/or Receiving Nurses: Please use comment section below to note any information pertinent to the patient hand-off not included above. Information / Comments: report received Report received from: Ck Antunez, Continuous Dryout Operator Helper at [id number]
[2024-12-28] MEDS: Oseltamivir 75 MG CAP PO (17:17)
[2024-12-28] MEDS: cefTRIAXone 2 GM/50 ML BAG IVPB (18:02)
[2024-12-28] MEDS: Azithromycin 250 MG TAB 500 MG PO (18:02)
[2024-12-28] MEDS: predniSONE 20 MG TAB 40 MG PO (18:02)
[2024-12-28] MEDS: Normal Saline 1,000 ML 100 ML IV (18:03)
[2024-12-28] MEDS: Normal Saline Flush 10 ML SYR IVP (20:04)
[2024-12-28] MEDS: Melatonin 3 MG TAB PO (20:04)
[2024-12-28] MEDS: guaiFENesin 600 MG TABCR PO (20:04)
[2024-12-28] MEDS: Fluticasone NASAL SPRAY 16 GM BTL 5e-05 NS (21:08)
[2024-12-29 04:43] VITALS: O2SAT 94
[2024-12-29 06:09] VITALS: BP 130/68; PULSE 82; RESP 18; TEMP 36.2; O2SAT 92
[2024-12-29 06:36] LABS: Abs Immature Grans 0.12 10^3/uL (0.0-0.06); Absolute Monocyte Count 0.55 10^3/uL (0.1-0.8); Absolute Neutrophil Count 16.62 10^3/uL (1.2-6.7); Basophils % 0.4 %; Eosinophils % 0.1 %; HCT 37.7 % (36.0-46.0); HGB 12.6 g/dL (11.2-15.7); Immature Grans % 0.7 %; Lymphocytes % 4.9 %; MCH 28.8 pg (27.0-33.0); MCHC 33.4 % (32.0-36.0); MCV 86 fL (80-95); MPV 8.8 fL (8.0-11.0); Neutrophils % 90.9 %; Platelet Count 296 10^3/uL (130-400); RBC 4.38 10^6/uL (3.93-5.22); RDW 12.9 % (11.7-14.6); RDW-SD 40.6 fL; WBC 18.28 10^3/uL (4.4-10.8)
[2024-12-29 06:42] LABS: Absolute Basophil Count 0.07 10^3/uL (0.0-0.2); Absolute Eosinophil Count 0.02 10^3/uL (0.0-0.7)
[2024-12-29 06:59] LABS: Anion Gap 9.8 mmol/L (3-11); BUN 13 mg/dL (7-18); CO2 26.2 mmol/L (21.0-32.0); CREATININE 1.1 mg/dL (0.55-1.02); Calcium 8.4 mg/dL (8.5-10.1); Chloride 106 mmol/L (98-107); Estimated GFR 53.06 (mL/min/1.73m2); Glucose 152 mg/dL (74-106); Potassium 3.8 mmol/L (3.5-5.1); Sodium 142 mmol/L (136-145)
[2024-12-29] MEDS: Oseltamivir 30 MG CAP PO (07:51)
[2024-12-29] MEDS: guaiFENesin 600 MG TABCR PO (07:51)
[2024-12-29] MEDS: predniSONE 20 MG TAB 40 MG PO (07:51)
[2024-12-29] MEDS: Normal Saline Flush 10 ML SYR IVP (07:52)
[2024-12-29] MEDS: Azithromycin 250 MG TAB 500 MG PO (07:52)
[2024-12-29 08:06] VITALS: PULSE 88; RESP 16; RESP 9; O2SAT 93
[2024-12-29] MEDS: Budesonide/Formoterol 160/4.5 6 GM 60 PUFF INH IH (08:06)
[2024-12-29] MEDS: Albuterol/Ipratropium 3 ML UPD VIAL UPD (08:06)
[2024-12-29 08:18] VITALS: PULSE 85
--- NOTE | 2024-12-29 09:45 | PDOC.CMIN ---
Date of service: 12/29/24 Time of Service: 09:45 Care Management Initial Assmt Initial Assessment Reason for Hospitalization: Flu A, pneumonia Functional Status/Living Situation Patient Presentation: Cayla presented to the ED yesterday evening with complaints of shortness of breath, cough fever congestion generalized weakness has been going on for approximately 1 week. She was found to have Flu A and pneumonia. She required O2 in the ED, and was unable to be weaned off of it, so was admitted. Cayla was sitting up in the bed when CM met with her today. She was very pleasant. Cayla was noted to have a scratchy throat, and her voice diminished in strength the longer she talked. This was relieved by sipping water. Cayla stated that she is ready to go home. Her son lives on the same property, and is prepared to take care of Cayla and her who is also feeling ill. Cayla declined the need of any home services. Town of Residence: [place] Resides with: Spouse (, Link) Significant Other/Family: Local (Son, Attila, and his Valorie) Natural Supports: family Attila is very supportive Employment Status: Retired (worked as a PT aide for many years) Instrumental Activities of Daily Living (ADLs): Independent Medications Medication Management: No Issues/Barriers identified Advance Directives Advance Directives: Do you have an Advance Directive: N 01/09/20 12:02 AD On File at [facility]: N 01/09/20 12:02 Date Asked 12/28/24 12/28/24 11:01 AD Date Reviewed COLST On File at [facility] No 12/27/20 14:31 COLST Date Scanned Code Status Resuscitation Status Full Code Insurance Coverage/Financial Issues Insurance: Medicare Part A & B [facility] Care Team Visit Care Team Role Provider Type Adelaide Grant NP NURSE PRACTITIONER Elis Jiménez NP Primary Care Provider NURSE PRACTITIONER SYLVAIN [facility] Provider PHYSICIANS SURVEY MANAGER Jose Silva Admit Provider [facility] STAFF PHYSICIAN Attending Provider Discharge Potential Discharge Needs: PCP F/U Appt Anticipated Barriers to Discharge: None Identified Patient/Family Education Needs: Review discharge instructions, discuss Ask Me Three Transportation: Private vehicle Plan: Cayla will be discharged home this afternoon with no new services. She will be sent home with new rx for an inhaler, tamilflu, abx and prednisone. She will f/u with her PCP and per her discharge plan of care. Cayla will transport home in a private vehicle with her son. Social Determinants of Health Screening Will the Patient Participate in the Screening?: Declined to provide PFSH All Active Problems (Updated 12/28/24 @ 17:42 by Adelaide Grant NP) Discharge planning issues (Acute) COPD exacerbation (Acute) Acute hypoxic respiratory failure (Acute) Sepsis without septic shock (Acute) Hypoxemia (Acute) Pneumonia (Acute) Influenza A (Acute) Spider veins (Chronic) NSAID long-term use (Acute) Ganglion cyst of wrist (Acute) Arthrosis of first carpometacarpal joint (Acute) L; x-ray 12/2019 Scoliosis (Chronic) Allergic rhinitis due to pollen (Chronic) [place] Crew Member consultation 2017: Saline spray, azelastine spray, ventolin, prednisone PRN, fluticasone, symbicort, zyrtec Insomnia (Chronic) h/o clonazepam use 01/04/21 Pt denies JMC. Moderate persistent asthma (Chronic) Medical History (Updated 12/28/24 @ 17:42 by Adelaide Grant NP) COVID (~06/2023) Dermatofibroma Reyes angioma Multiple benign melanocytic nevi of upper extremity, lower extremity, and trunk Seborrheic keratoses Lentigines Actinic cheilitis COPD (chronic obstructive pulmonary disease) Pt. states she has damage to her bronchi due to a severe bought of bronchitis in her 20's Palpitations Pt. stated had cardiac work-up in [place], per pt. stated MD told her she did not need to have any tx at the time, states occasionally she will get palpitations but they don't amount to much. Pt. states she is very active. Rhinitis Melanoma In situ, left upper inner arm s/p WLE 09/2015 Derm consultation (last 2016, no evidence of recurrence) q6m in [place] Surgical History Status post laparoscopy-assisted vaginal hysterectomy (~12/2020) LAVH, BSO, anterior colporrhaphy, Callahan's culdoplasty Status post D&C Status post surgical removal of malignant neoplasm of skin Family History (Updated 01/07/24 @ 09:45 by Roxanne Roth) Son Family history of thyroid problem Asthma Arthritis Father Stroke Diabetes Mother Diabetes Breast cancer Asthma Arthritis Cancer Skin Heart disease Sister Diabetes Arthritis Maternal Grandmother Heart disease Maternal Uncle Alcohol use disorder Social History (Updated 01/07/24 @ 09:42 by Roxanne Roth) Smoking/Tobacco Use Status: Never Smoking risk assessment performed?: Yes Alcohol Intake: current Alcohol Intake frequency: a few times a week Drug use: Never Substance use type: does not use Adopted: No Caregiver/Support person: No Foster care: No Household members: spouse Housing: house Number of Children: 1 Communication Needs: None Education Level: master's degree Do you need help understanding health information?: Never current occupation: Retired self-employed PT Pets and animals: No Sexually active: Yes Do you think of yourself as: straight/heterosexual Current gender identity: female What is your relationship status?: How often do you talk on the phone with friends or family?: once per week How often do you get together with friends or relatives?: never How often do you attend faith or anglican services?: decline to answer Do you belong to any clubs or organized social groups?: no Panel score (0-1 are the most socially isolated patients): 1 What type of physical activity do you participate in: independent ambulation, aerobic, regular exercise, swimming and other Details: Figure skating, cross country skiing, gardening, health gymnastics Duration: 30-45 minutes/day Frequency: daily Seatbelt use: always Helmet use: Yes (If required) Helmet use: sometimes Drive intox or ride w/intox milk wagon driver: No Do you feel safe at home: Yes Do you feel safe in your relationship?: Yes Additional Social history: Lives with & son Readmission Within the Past 30 Days Yes or No: No
--- NOTE | 2024-12-29 09:57 | W.PM.PROGNOT ---
Date of Service Date of service: 12/29/24 Time of Service: 09:57 Assessment and Plan Assessment and plan (1) Sepsis without septic shock: Status: Acute Assessment and plan: meets criteria for sespis with elevated WBC, tachycardia and tachypnea blood pressure stable (2) Acute hypoxic respiratory failure: Status: Acute Assessment and plan: requiring oxygen by AL to maintain sats with ambulation wean as able pulmonary toileting, I/S and acapella treatment for pneumonia, influenza and copd (3) Influenza A: Status: Acute Assessment and plan: tamiflu, (4) Pneumonia: Status: Acute Assessment and plan: Ceftriaxone and azithromycin day 1 of 5 Wean oxygen as able Scheduled DuoNebs with albuterol as needed I-S and acapella Mucinex (5) COPD exacerbation: Status: Acute Assessment and plan: Prednisone burst See above (6) Discharge planning issues: Status: Acute Assessment and plan: DVT prophylaxis enoxaparin daily Discharge planning issues anticipated discharge to home with no new services once medically stable and weaned off oxygen discussed with DR Silva Objective Last Vital Signs Temp 36.2 C L 12/29/24 06:09 Pulse 85 12/29/24 08:18 Resp 16 12/29/24 08:06 BP 130/68 12/29/24 06:09 Pulse Ox 93 12/29/24 08:06 Laboratory Results - last 24 hr 12/28/24 12/28/24 12/28/24 11:10 11:40 11:45 WBC 19.62 H RBC 4.92 Hgb 14.2 Hct 42.5 MCV 86 MCH 28.9 MCHC 33.4 RDW 12.8 Plt Count 267 MPV 8.7 Immature Gran % 1.0 Neutrophils % 94.6 Lymphocytes % 1.5 Monocytes % 1.6 Eosinophils % 0.9 Basophils % 0.4 Nucleated RBC % 0.0 Absolute Neutrophils 18.56 H Absolute Lymphocytes 0.29 L Absolute Monocytes 0.31 Absolute Eosinophils 0.18 Absolute Basophils 0.08 Sodium Cancelled 132 L Potassium Cancelled 3.4 L Chloride Cancelled 97 L Carbon Dioxide Cancelled 27.7 Anion Gap Cancelled 7.3 BUN Cancelled 17 Creatinine Cancelled 1.0 Est GFR (CKD-EPI 2020) Cancelled 59.49 Glucose Cancelled 148 H Calcium Cancelled 8.0 L Total Bilirubin Cancelled 0.77 AST Cancelled 18 ALT Cancelled 20 Alkaline Phosphatase Cancelled 99 Total Protein Cancelled 6.4 Albumin Cancelled 2.6 L COVID-19 Source Nasopharynx SARS-CoV-2 (PCR) Negative Influenza Type A (PCR) Positive A Influenza Type B (PCR) Negative RSV (PCR) Negative 12/29/24 06:20 WBC 18.28 H RBC 4.38 Hgb 12.6 Hct 37.7 MCV 86 MCH 28.8 MCHC 33.4 RDW 12.9 Plt Count 296 MPV 8.8 Immature Gran % 0.7 Neutrophils % 90.9 Lymphocytes % 4.9 Monocytes % 3.0 Eosinophils % 0.1 Basophils % 0.4 Nucleated RBC % 0.0 Absolute Neutrophils 16.62 H Absolute Lymphocytes 0.90 L Absolute Monocytes 0.55 Absolute Eosinophils 0.02 Absolute Basophils 0.07 Sodium 142 D Potassium 3.8 Chloride 106 Carbon Dioxide 26.2 Anion Gap 9.8 BUN 13 Creatinine 1.1 H Est GFR (CKD-EPI 2020) 53.06 Glucose 152 H Calcium 8.4 L Total Bilirubin AST ALT Alkaline Phosphatase Total Protein Albumin COVID-19 Source SARS-CoV-2 (PCR) Influenza Type A (PCR) Influenza Type B (PCR) RSV (PCR)
--- NOTE | 2024-12-29 11:15 | NUR.NOTE ---
patient has been Axox4 throughout shift, VSS, denies pain, endorses that cough has become productive with mucinex, feels her work of breathing has improved with acitivity. Pt is independent in room. Eating, toileting normally. SCDs on. Tolerating room air, fine crackles heard at RML. Possible d/c to home today per THREADER OPERATOR Renee, pt aware and will discuss POC more during THREADER OPERATOR bedside rounds. Son at bedside visiting. Call light in reach, bed low/locked.Nursing Note:
--- NOTE | 2024-12-29 13:15 | W.PM.DS.N ---
Date of service: 12/29/24 Time of Service: 13:16 DS: Diagnosis Discharge Diagnosis (1) Sepsis without septic shock: Status: Acute (2) Acute hypoxic respiratory failure: Status: Acute (3) Influenza A: Status: Acute (4) Pneumonia: Status: Acute (5) COPD exacerbation: Status: Acute (6) Discharge planning issues: Status: Acute Discharge Plan Disposition Patient Disposition: Home Condition: Improving Discharge Details Reason For Visit: Hypoxic Resp Failure,Influenza,Pneumonia,Sepsis wi Admit Date/Time: 12/28/24 16:36 Admit Provider: Jose Silva Attending Provider: Jose Silva Primary Care Provider: Elis Jiménez Hospital Course Hospital Course: This 71 years old floor patient with past medical history significant for not oxygen dependent COPD, asthma presented to the ED at [facility] on 12/28/2024 for evaluation of shortness of breath, cough, fever, congestion, generalized weakness for a week. Workup in the emergency showed positive influenza A, infiltrates on the left lower lobe on the chest x-ray with marked cephalization. The patient was tachycardic and received IVF with improvement in her heart rate. The patient was tachypneic and required 2 L of oxygen by nasal cannula to maintain sat in the low 90s. In the ED the patient received Augmentin and doxycycline with anticipation for discharge but due to ongoing oxygen requirement the patient was admitted to the medical surgical floor by the hospitalist. In the ED the patient was also treated with Tamiflu. Oral steroids were added to the regimen of azithromycin and ceftriaxone as well as nebulizer treatments with DuoNebs . Today the patient no longer requires oxygen supplementation and his goal to ambulate in the room without shortness of breath. The patient is afebrile and hemodynamically stable and will be discharged home on oral antibiotics, a burst of prednisone, Tamiflu, Symbicort and Mucinex. The patient will have to follow-up with her primary care practitioner within 7 days of discharge. Home Meds and New Rx's Prescriptions: New budesonide-formoterol [Symbicort] 160-4.5 mcg/actuation Hfa Aerosol Inhaler 1 puff inhalation BID Qty: 10.2 0RF azithromycin 250 mg Tablet 500 mg PO DAILY Qty: 6 0RF guaifenesin [Mucus Relief ER] 600 mg Tablet Extended Release 12hr 600 mg PO BID Qty: 10 0RF oseltamivir 30 mg Capsule 30 mg PO BID Qty: 8 0RF prednisone 20 mg Tablet 40 mg PO DAILY Qty: 8 0RF cefpodoxime 200 mg tablet 200 mg PO BID Qty: 8 0RF Rx Instructions: must administer with a meal/food Continued fluticasone propionate 50 mcg/actuation spray,suspension See Rx Instructions .ROUTE .COMPLEX Qty: 16 6RF Dose Instruction: INSTILL 1 TO 2 SPRAYS INTO EACH NOSTRIL DAILY NEEDED FOR ALLERGY SYMPTOMS Rx Instructions: INSTILL 1 TO 2 SPRAYS INTO EACH NOSTRIL DAILY NEEDED FOR ALLERGY SYMPTOMS meloxicam 15 mg tablet 7.5 - 15 mg PO DAILY PRN (Reason: scoliosis pain) Qty: 90 3RF Rx Instructions: Use the lowest effective dose; do not mix with other NSAIDs sodium chloride [Saline Nasal] 0.65 % aerosol,spray 1 spray ROVERTO Q1-4H PRN fluticasone propion-salmeterol 250-50 mcg/dose blister with device See Rx Instructions .ROUTE .COMPLEX Qty: 60 11RF Dose Instruction: INHALE ONE PUFF BY MOUTH TWICE A DAY Rx Instructions: INHALE ONE PUFF BY MOUTH TWICE A DAY albuterol sulfate [Ventolin HFA] 90 mcg/actuation HFA aerosol inhaler 1 - 2 puff IH Q4H PRN (Reason: asthma) Qty: 6.7 3RF Acetaminophen [Tylenol] 500 mg PO Q4H PRN PRNQty: 30 0RF Changed ibuprofen 200 mg tablet 400 mg PO Q8H PRNQty: 0 0RF Discharge Instructions Instructions: Pneumonia, Adult (DC), Flu in adults - Discharge instructions Stand Alone Forms: Nursing Discharge Form Referrals: Elis Jiménez NP [Primary Care Provider] - 01/08/25 10:15 am (Follow-up with PCP within 7 days of discharge) Activity:: Activity as Tolerated Equipment/Supplies:: No Equipment Needed Diet:: As Tolerated Discharge Orders Discharge Orders: Discharge Order (Routine); Ordered 12/29/24 Ordered By: Renee Murdock DS: Summary Time Spent with Patient providing and/or coordinating discharge services: Greater than 30 minutes Status at Discharge Functional status at discharge: independent ambulation Overall status at discharge: patient is progressing back to baseline Mental Status: mental status grossly normal Speech and Movement: speech and movement normal Mood: congruent mood Affect: normal affect Quality:SDOH Health Related Social Needs: No Data to Display Exam Psych Mental Status: mental status grossly normal Speech and Movement: speech and movement normal Mood: congruent mood Affect: normal affect DS: Data Vitals/I&O Vitals and I&O: Vital Signs Temperature 36.2 C L 12/29/24 06:09 Temperature Source Temporal Artery Scan 12/29/24 06:09 Pulse 85 12/29/24 08:18 Pulse Rhythm Regular 12/28/24 17:41 Pulse 96 H 12/28/24 17:10 Respiratory Rate 16 12/29/24 08:06 Respiratory Effort Short of Breath 12/28/24 17:41 Respiratory Depth Normal 12/28/24 17:41 Respiratory Pattern Normal 12/28/24 17:41 Blood Pressure 130/68 12/29/24 06:09 Blood Pressure Mean 83 12/28/24 17:01 Blood Pressure Position Sitting 12/28/24 11:05 Pulse Oximetry 93 12/29/24 08:06 Oxygen Delivery Method Room Air 12/29/24 08:06 Oxygen Flow Rate 0 12/29/24 08:06 Pain Level 0 12/29/24 07:52 Comment 88-90 on RA 12/28/24 17:40 Intake & Output 12/28/24 12/29/24 12/29/24 23:59 11:59 23:59 Intake Total 1999 3290 / 3290 Output Total 580 / 580 1500 / 1500 Balance 1420 / 1420 1790 / 1790 Weight 70.624 kg Intake: IV 1999 3050 / 3050 Oral 240 / 240 Output: Urine 580 / 580 1500 / 1500 Other: Urine Color Yellow Yellow Urine Appearance Clear Clear Urine Odor None Comment toileting self in bathroom Data Completed and Pending Labs on day of discharge: Labs from last 24 hours 12/29/24 06:20 WBC 18.28 H RBC 4.38 Hgb 12.6 Hct 37.7 MCV 86 MCH 28.8 MCHC 33.4 RDW 12.9 Plt Count 296 MPV 8.8 Immature Gran % 0.7 Neutrophils % 90.9 Lymphocytes % 4.9 Monocytes % 3.0 Eosinophils % 0.1 Basophils % 0.4 Nucleated RBC % 0.0 Absolute Neutrophils 16.62 H Absolute Lymphocytes 0.90 L Absolute Monocytes 0.55 Absolute Eosinophils 0.02 Absolute Basophils 0.07 Sodium 142 D Potassium 3.8 Chloride 106 Carbon Dioxide 26.2 Anion Gap 9.8 BUN 13 Creatinine 1.1 H Est GFR (CKD-EPI 2020) 53.06 Glucose 152 H Calcium 8.4 L PFSH All Active Problems (Updated 12/28/24 @ 17:42 by Adelaide Grant, FABIOLA) Discharge planning issues (Acute) COPD exacerbation (Acute) Acute hypoxic respiratory failure (Acute) Sepsis without septic shock (Acute) Hypoxemia (Acute) Pneumonia (Acute) Influenza A (Acute) Spider veins (Chronic) NSAID long-term use (Acute) Ganglion cyst of wrist (Acute) Arthrosis of first carpometacarpal joint (Acute) L; x-ray 12/2019 Scoliosis (Chronic) Allergic rhinitis due to pollen (Chronic) [place] [facility] consultation 2017: Saline spray, azelastine spray, ventolin, prednisone PRN, fluticasone, symbicort, zyrtec Insomnia (Chronic) h/o clonazepam use 01/04/21 Pt denies JMC. Moderate persistent asthma (Chronic) Medical History (Updated 12/28/24 @ 17:42 by Adelaide Grant NP) COVID (~06/2023) Dermatofibroma Reyes angioma Multiple benign melanocytic nevi of upper extremity, lower extremity, and trunk Seborrheic keratoses Lentigines Actinic cheilitis COPD (chronic obstructive pulmonary disease) Pt. states she has damage to her bronchi due to a severe bought of bronchitis in her 20's Palpitations Pt. stated had cardiac work-up in [place], per pt. stated told her she did not need to have any tx at the time, states occasionally she will get palpitations but they don't amount to much. Pt. states she is very active. Rhinitis Melanoma In situ, left upper inner arm s/p WLE 09/2015 Derm consultation (last 2016, no evidence of recurrence) q6m in [place] Surgical History Status post laparoscopy-assisted vaginal hysterectomy (~12/2020) LAVH, BSO, anterior colporrhaphy, Callahan's culdoplasty Status post D&C Status post surgical removal of malignant neoplasm of skin Family History (Updated 01/07/24 @ 09:45 by Roxanne Roth) Son Family history of thyroid problem Asthma Arthritis Father Stroke Diabetes Mother Diabetes Breast cancer Asthma Arthritis Cancer Skin Heart disease Sister Diabetes Arthritis Maternal Grandmother Heart disease Maternal Uncle Alcohol use disorder Social History (Updated 01/07/24 @ 09:42 by Roxanne Roth) Smoking/Tobacco Use Status: Never Smoking risk assessment performed?: Yes Alcohol Intake: current Alcohol Intake frequency: a few times a week Drug use: Never Substance use type: does not use Adopted: No Caregiver/Support person: No Foster care: No Household members: spouse Housing: house Number of Children: 1 Communication Needs: None Education Level: master's degree Do you need help understanding health information?: Never current occupation: Retired self-employed PT Pets and animals: No Sexually active: Yes Do you think of yourself as: straight/heterosexual Current gender identity: female What is your relationship status?: How often do you talk on the phone with friends or family?: once per week How often do you get together with friends or relatives?: never How often do you attend rastafari or hindu services?: decline to answer Do you belong to any clubs or organized social groups?: no Panel score (0-1 are the most socially isolated patients): 1 What type of physical activity do you participate in: independent ambulation, aerobic, regular exercise, swimming and other Details: Figure skating, cross country skiing, gardening, health gymnastics Duration: 30-45 minutes/day Frequency: daily Seatbelt use: always Helmet use: Yes (If required) Helmet use: sometimes Drive intox or ride w/intox truck driver salesperson: No Do you feel safe at home: Yes Do you feel safe in your relationship?: Yes Additional Social history: Lives with & son Time Spent with Patient Time Spent with Patient: 70-84 minutes4 Time was spent: preparing to see the patient(eg.review tests), obtaining and/or reviewing separately otained hiistory, ordering medications,tests, procedures, referring, communicating with other health healthcare business analyst, indepentently interpreting results, counseling the patient and care coordination
[2024-12-29 14:03] VITALS: BP 127/62; PULSE 86; RESP 22; TEMP 36.4; O2SAT 93
--- NOTE | 2024-12-29 14:21 | NUR.NOTE ---
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 Pt reports understanding of education without concerns or questions at this time. Denies pain at discharge. PIV removed. Son coming to get her. Asked CLIN NURSE SPEC Renee about albuterol nebs at home, unable to order due to insurance. Told patient to ask PCP about trying to get set up with this. Nursing Note:
[2024-12-29 14:31] VITALS: BP 124/62; PULSE 102; RESP 18; TEMP 36.4; O2SAT 92
== END 2024-12-29 14:57 | disposition home or self-care (01) | DRG 871 ==
LOC: ER 16:28 → MS 17:25
PROVIDERS: Nurse Practitioner Acute Care; Admitting Provider Family Medicine; Emergency Provider Physician Assistant; PCP Nurse Practitioner Adult Health; Responsible Provider Nurse Practitioner Acute Care; Visit Provider Family Medicine
DX: A41.9 Sepsis, unspecified organism (principal); J10.00 Influenza due to other identified influenza virus with unspecified type of pneumonia; J96.01 Acute respiratory failure with hypoxia; J18.9 Pneumonia, unspecified organism; J44.0 Chronic obstructive pulmonary disease with (acute) lower respiratory infection; J44.1 Chronic obstructive pulmonary disease with (acute) exacerbation; J45.40 Moderate persistent asthma, uncomplicated; G47.00 Insomnia, unspecified; Z79.1 Long term (current) use of non-steroidal anti-inflammatories (NSAID)
CPT/HCPCS: 00123; 36415; 80048; 80053; 87637; 94640; 96360; 96361; 99285; 71046; 85025; 94664; 94667; 94668; 94760; 99223; 99239; J0696; J7512; J7620

== ENCOUNTER 2025-02-09 01:09 | Outpatient (CLI) | payer MEDICARE, OTHER, SELFPAY ==
--- NOTE | 2025-02-09 07:00 | DI.RAD_ITS ---
Exam(s) XR CHEST 2V PA LATERAL EXAM: XR CHEST 2V PA LATERAL CLINICAL HISTORY: INTERVAL F/U LLL PNEUMONIA,ABNL CXR,J18.9,R93.89. TECHNIQUE: 2D digital imaging was performed. COMPARISON: CR,XR XR CHEST 2V PA LATERAL from 12/28/2024 FINDINGS: 2 views: Heart size is normal. The mediastinum is not widened. Lungs are clear. No infiltrates nor pleural effusions. Previously present infiltrates seen on 12/28 chest x-ray appear to have resolved. There is a small granuloma in the right upper lobe. No p leural effusions. Thoracolumbar scoliosis again noted. IMPRESSION: Improved infiltrates when compared to 12/28/2024. No residual infiltrates and no pleural effusions. DATA REPOSITORY: RADIATION DOSE DELIVERED:
== END 2025-02-09 01:29 ==
LOC: DI 01:09
PROVIDERS: PCP Nurse Practitioner Adult Health; Visit Provider Nurse Practitioner Adult Health
DX: J18.9 Pneumonia, unspecified organism (principal); R93.89 Abnormal findings on diagnostic imaging of other specified body structures
CPT/HCPCS: 71046

== ENCOUNTER 2025-03-03 00:25 | Outpatient (CLI) | payer MEDICARE, OTHER, SELFPAY ==
--- NOTE | 2025-03-03 07:15 | DI.MAMMO_ITS ---
Exam(s) MAMMO SCREENING EXAM: MAMMO SCREENING CLINICAL HISTORY: screening,z12.39. TECHNIQUE: Bilateral full field digital CC and MLO mammographic images were obtained with 3D tomosyn thesis and utilizing computer aided detection (CAD). COMPARISON: Prior mammograms were reviewed. FINDINGS: There has been no significant change in the appearance and distribution of the fibroglandular tissue. There are no CAD designations. No new right breast findings. In the left breast on the 3D MLO view there are 2 adjacent nodular densities located laterally which are more evident than on previous mammograms. These are both located 6 cm in from the nipple on the MLO view and both measure approximately 5 mm size. There are no malignant-appearing microcalcificati on groups in this region or elsewhere in either breast. There is no significant architectural distortion nor skin thickening-retraction. IMPRESSION: 1. No radiographic evidence of malignancy in right breast. 2. 2 small nodular densities located laterally in the left breast. Spot compression left breast MLO view and ultrasound recommended. BI-RADS Category 0 - Incomplete: Need additional imaging evaluation Breast Density - Category B - There are scattered areas of fibroglandular density. Breast density Category C or D implies that the patient has dense breast tissue. Dense breast tissue can make it harder to find cancer on a mammogram. Dense breast tissue is also associated with an incr eased risk of breast cancer. This information about the result of the mammogram report was provided to the patient to raise their awareness. Use this report when you speak with the patient about their risks for breast cancer, which includes their family history. At that time, you may recommend additional screening tests (Ultrasoun d or MRI) as these tests may add significant information. A negative radiographic report should not delay biopsy if a dominant or clinically suspicious mass is present. Up to ten percent of cancers are not identified on mammography. A negative report may reinforce clinical impression. Adenosis and dense breasts may obscure an underlying neoplasm. False positive reports average 6 to 10%. Patient will receive a letter notifying them of these results.
== END 2025-03-03 00:45 ==
LOC: DI 00:25
PROVIDERS: PCP Nurse Practitioner Adult Health; Visit Provider Nurse Practitioner Adult Health
DX: Z12.31 Encounter for screening mammogram for malignant neoplasm of breast (principal); R92.323 Mammographic fibroglandular density, bilateral breasts
CPT/HCPCS: 77063; 77067

== ENCOUNTER 2025-03-05 00:43 | Outpatient (CLI) | payer MEDICARE, OTHER, SELFPAY ==
--- NOTE | 2025-03-05 | DI.MAMMO_ITS ---
Exam(s) MG MAMMO SCREEN CALL BACK UNI US BREAST LT COMPLETE EXAM: MG MAMMO SCREEN CALL BACK UNI-LEFT AND COMPLETE LEFT BREAST ULTRASOUND CLINICAL HISTORY: F/U ABNL MAMMO,2 LT NODULAR DENSITIES LATERALLY. TECHNIQUE: Unilateral LEFT BREAST spot mammographic images obtained with 3D tomosynthesisand [employer] ng computer aided detection (CAD). . Complete LEFT breast Ultrasound was also performed, including all 4 quadrants, the retroareolar regio n, and the ipsilateral axilla. COMPARISON: Prior mammograms were reviewed. This additional imaging was performed due to findings described on the recent screening mammogram of 03/03/2025. FINDINGS: DIAGNOSTIC MAMMOGRAM: Additional mammographic views performed todayrender this area less concerning. COMPLETE LEFT BREAST ULTRASOUND: Ultrasound performed today reveals no evidence of solid or significant cystic lesions in all 4 quadra nts. Finding at 2 o'clock position seen just asymmetric tissue. Scanning of the ipsilateral axilla reveals no significant adenopathy. IMPRESSION: 1. No radiographic evidence of malignancy. 2. No significant ultrasound findings in left breast Appropriate follow-up is to keep this patient on her yearly mammogram schedule, with earlier imaging if a self detected breast change is noted The patient was informed of these findings and recommendations by myself prior to leaving the [facility] ent today. BI-RADS Category 2 - Benign Findings Breast Density - Category B - There are scattered areas of fibroglandular density. Breast density Category C or D implies that the patient has dense breast tissue. Dense breast tissue can make it harder to find cancer on a mammogram. Dense breast tissue is also associated with an incr eased risk of breast cancer. This information about the result of the mammogram report was provided to the patient to raise their awareness. Use this report when you speak with the patient about their risks for breast cancer, which includes their family history. At that time, you may recommend additional screening tests (Ultrasoun d or MRI) as these tests may add significant information. A negative radiographic report should not delay biopsy if a dominant or clinically suspicious mass is present. Up to ten percent of cancers are not identified on mammography. A negative report may reinforce clinical impression. Adenosis and dense breasts may obscure an underlying neoplasm. False positive reports average 6 to 10%. Patient will receive a letter notifying them of these results.
== END 2025-03-05 01:03 ==
PROVIDERS: PCP Nurse Practitioner Adult Health; Visit Provider Nurse Practitioner Adult Health
DX: R92.8 Other abnormal and inconclusive findings on diagnostic imaging of breast (principal); Z12.31 Encounter for screening mammogram for malignant neoplasm of breast
CPT/HCPCS: 76642; 77063; 77067

== ENCOUNTER 2025-10-23 13:39 | Emergency (ER) | payer MEDICARE, OTHER, SELFPAY ==
[2025-10-23] VITALS (19 sets, daily range): BP systolic 140–195; BP diastolic 52–71; PULSE 72–84; RESP 10–20; TEMP 36.6; O2SAT 94–98
--- NOTE | 2025-10-23 13:30 | RT.EKG_ITS ---
APPROVED REPORT Exam: Resting ECG Reason for Exam: Palpatations Patient Location: E HR:85 bpm ECG Measurements Heart Rate 85 AXIS DE 138 P 66 QRSd 98 QRS 16 QT 405 T 54 QTc 481 Conclusion Sinus rhythm...normal P axis, V-rate 60- 99
--- NOTE | 2025-10-23 14:00 | DI.CT_ITS ---
Exam(s) CT BRAIN NECK CTA EXAM: CT BRAIN NECK CTA CLINICAL HISTORY: head and posterior neck pain, dizziness. TECHNIQUE: Imaging Protocol: Axial CT angiography was performed with multi- slice acquisition and multi-planar and/or 3D reconstructions. CONTRAST MATERIAL: Intravenous: Omnipaque 350 contrast volume:70 mL COMPARISON: No exams were available for comparison FINDINGS: The examination is limited due to patient motion artifact. CT Head W/O and W: Ventricles and Extra axial spaces: Normal in size and morphology for the patient's age. Hemorrhage: None. Cerebral parenchyma: There is no evidence of an acute territorial infarct. Midline shift: None. Brainstem/Cerebellum: Normal. Calvarium: Normal. Visualized Paranasal sinuses/Mastoids: Clear. Soft Tissues: Unremarkable. Enhancement: Unremarkable. CTA Neck W: Common Carotid: Right: No dissection, occlusion or significant stenosis. Left: No dissection, occlusion or significant stenosis. External Carotid: Right: No occlusion or significant stenosis. Left: No occlusion or significant stenosis. Internal Carotid: Right: No dissection, occlusion or significant stenosis. Left: No dissection, occlusion or significant stenosis. Vertebral Artery: Right: No dissection, occlusion or significant stenosis. Left: No dissection, occlusion or significant stenosis. Lung Apices: Normal. Bones: Within normal limits for the patient's age. Soft Tissues: Normal. Thyroid gland: Unremarkable. CTA Brain W: Internal Carotid Arteries: There is no evidence of an aneurysm, occlusion or significant stenosis. Anterior Cerebral Arteries: Right: No aneurysm, occlusion or significant stenosis. Left: No aneurysm, occlusion or significant stenosis. Middle Cerebral Arteries: Right: No aneurysm, occlusion or significant stenosis. Left: No aneurysm, occlusion or significant stenosis. Posterior Cerebral Arteries: Right: No aneurysm, occlusion or significant stenosis. Left: No aneurysm, occlusion or significant stenosis. Vertebral Arteries: Right: No aneurysm, occlusion or significant stenosis. Left: No aneurysm, occlusion or significant stenosis. Basilar Artery: No aneurysm, occlusion or significant stenosis. IMPRESSION: 1. No large vessel occlusion or significant stenosis on the CT angiography of the head. 2. No acute intracranial process. 3. No occlusion or significant stenosis on the CT angiography of the neck. RADIATION DOSE DELIVERED: 1,864.04mGy.cm Total DLP DATA REPOSITORY: All CT scans at this facility are submitted to the National Radiology Data Registry (NRDR) Dose Index Registry (DIR) with the [employer] ([employer]). RADIATION OPTIMIZATION: All CT scans at this facility use at least one of these dose optimization techniques: automated exposure control; mA and/or kV adjustment per patient size (includes targeted exams where dose is matched to clinical indication); or iterative reconstruction.
--- NOTE | 2025-10-23 14:00 | DI.RAD_ITS ---
Exam(s) XR CHEST 2V PA LATERAL EXAM: XR CHEST 2V PA LATERAL CLINICAL HISTORY: dyspnea, cough TECHNIQUE: 2D digital imaging was performed of the chest. Two images were obtained. PA and lateral views were obtained. COMPARISON: CR,XR XR CHEST 2V PA LATERAL from 12/28/2024 CR XR CHEST 2V PA LATERAL from 02/09/2025 FINDINGS: MEDIASTINUM: Normal. HEART: Normal. PULMONARY VASCULATURE: Normal. LUNGS: Clear. PLEURAL SPACE: No pleural effusion or pneumothorax. BONE:Within normal limits for the patient's age. There is an S-type thoracolumbar scoliosis. OTHER FINDINGS:Normal. IMPRESSION: No acute pulmonary findings. DATA REPOSITORY: RADIATION DOSE DELIVERED:
--- NOTE | 2025-10-23 14:06 | W.ED.GENAD ---
Discharge Plan Disposition Patient Disposition: Home Condition: Stable Discharge Details Clinical Impression: Dizziness, Neck pain Primary Care Provider: Elsi Jiménez ED Provider: Jimmy Molina Home Meds and New Rx's Prescriptions: New lorazepam [Ativan] 1 mg tablet 1 mg PO BID PRN (Reason: anxiety) Qty: 10 0RF Continued fluticasone propionate 50 mcg/actuation spray,suspension See Rx Instructions .ROUTE .COMPLEX Qty: 16 6RF Dose Instruction: INSTILL 1 TO 2 SPRAYS INTO EACH NOSTRIL DAILY NEEDED FOR ALLERGY SYMPTOMS Rx Instructions: INSTILL 1 TO 2 SPRAYS INTO EACH NOSTRIL DAILY NEEDED FOR ALLERGY SYMPTOMS meloxicam 15 mg tablet 7.5 - 15 mg PO DAILY PRN (Reason: scoliosis pain) Qty: 90 3RF Rx Instructions: Use the lowest effective dose; do not mix with other NSAIDs hydrocortisone 2.5 % cream 1 applic topical TID PRN (Reason: skin irritation/hemorrhoid) Qty: 20 1RF Rx Instructions: Apply thin layer to hemorrhoid/s up to 3x/d PRN irritation. sodium chloride [Saline Nasal] 0.65 % aerosol,spray 1 spray ROVERTO Q1-4H PRN fluticasone propion-salmeterol 250-50 mcg/dose blister with device See Rx Instructions .ROUTE .COMPLEX Qty: 60 11RF Dose Instruction: INHALE ONE PUFF BY MOUTH TWICE A DAY Rx Instructions: INHALE ONE PUFF BY MOUTH TWICE A DAY albuterol sulfate [Ventolin HFA] 90 mcg/actuation HFA aerosol inhaler 1 - 2 puff IH Q4H PRN (Reason: asthma) Qty: 6.7 3RF albuterol sulfate 2.5 mg /3 mL (0.083 %) solution for nebulization 2.5 mg inhalation Q4H PRN (Reason: shortness of breath or wheezing) Qty: 180 1RF Rx Instructions: COPD with exacerbation, pneumonia (LLL) (J44.1, J18.9, J45.40) fluticasone propion-salmeterol 500-50 mcg/dose blister with device See Rx Instructions .ROUTE .COMPLEX Qty: 60 2RF Dose Instruction: INHALE ONE PUFF BY MOUTH TWICE A DAY USE THIS HIGHER STRENGTH UNTIL FEELING BETTER AND DONT REQUIRE ALBUTEROL EVERY DAY Rx Instructions: INHALE ONE PUFF BY MOUTH TWICE A DAY USE THIS HIGHER STRENGTH UNTIL FEELING BETTER AND DONT REQUIRE ALBUTEROL EVERY DAY ibuprofen 800 mg tablet See Rx Instructions .ROUTE .COMPLEX Qty: 100 0RF Dose Instruction: TAKE 1/2 TO 1 TABLET BY MOUTH TWICE A DAY NEEDED FOR ACUTE PAIN (HEADACHE) DO NOT MIX WITH OTHER NSAIDS SUCH MELOXICAM Rx Instructions: TAKE 1/2 TO 1 TABLET BY MOUTH TWICE A DAY NEEDED FOR ACUTE PAIN (HEADACHE) DO NOT MIX WITH OTHER NSAIDS SUCH MELOXICAM Acetaminophen [Tylenol] 500 mg PO Q4H PRN PRNQty: 30 0RF Discharge Instructions Instructions: Neck Stretches, Lorazepam Additional Instructions: Your blood work and imaging did not show anything of concern today. Follow up with your primary care provider as scheduled. If you feel more ill or have new symptoms such as persistent vomitting or high fevers return to the emergency department Stand Alone Forms: Portal Information HPI General Date/Time Provider Initiated Documentation: 10/23/25 13:52. Limitations to Documentation: no limitations. Information obtained by: patient. History of Present Illness 75 year old F presents to the emergency department with the chief complaint of dizzy, lightheaded, nausea, headach and neck pain, described as moderate, Quality is described as aching, and is localized to the head and neck. Patient reports no radiation. Patient started experiencing this week(s) (2) and it has been constant. No relieving factors improve symptom(s), No exacerbating factors reported . Patient notes shortness of breath; denies fever/chills. Patient did receive the following treatments prior to arrival, none Related Data Home Medications ?Medication ?Instructions ?Recorded ?Confirmed sodium chloride 0.65 % nasal spray 1 spray intranasal Q1-4H PRN 01/24/19 10/23/25 aerosol (Saline Nasal) Acetaminophen [Tylenol] 500 mg PO Q4H PRN PRN #30 caps 01/06/21 10/23/25 fluticasone 250 mcg-salmeterol 50 See Rx Instructions .Route 10/23/24 10/23/25 mcg/dose blistr powdr for .COMPLEX #60 blisters inhalation albuterol sulfate 90 mcg/actuation 1 - 2 puff inhalation Q4H PRN 12/11/24 10/23/25 aerosol inhaler (Ventolin HFA) asthma #6.7 grams albuterol sulfate 2.5 mg/3 mL 2.5 mg (3 mL) inhalation Q4H PRN 01/08/25 10/23/25 (0.083 %) solution for nebulization shortness of breath or wheezing #180 mL fluticasone propionate 50 See Rx Instructions .Route 01/08/25 10/23/25 mcg/actuation nasal .COMPLEX #16 grams spray,suspension hydrocortisone 2.5 % topical cream 1 applic topical TID PRN skin 01/08/25 10/23/25 irritation/hemorrhoid #20 grams meloxicam 15 mg tablet 7.5 - 15 mg (0.5 - 1 x 15 mg) PO 01/08/25 10/23/25 DAILY PRN scoliosis pain #90 tabs fluticasone 500 mcg-salmeterol 50 See Rx Instructions .Route 08/10/25 10/23/25 mcg/dose blistr powdr for .COMPLEX #60 blisters inhalation ibuprofen 800 mg tablet See Rx Instructions .Route 08/13/25 10/23/25 .COMPLEX #100 tabs lorazepam 1 mg tablet (Ativan) 1 mg PO BID PRN anxiety #10 tabs 10/23/25 Previous Rx's ?Medication ?Instructions ?Recorded Acetaminophen [Tylenol] 500 mg PO Q4H PRN PRN #30 caps 01/06/21 fluticasone 250 mcg-salmeterol 50 See Rx Instructions .Route 10/23/24 mcg/dose blistr powdr for .COMPLEX #60 blisters inhalation albuterol sulfate 90 mcg/actuation 1 - 2 puff inhalation Q4H PRN 12/11/24 aerosol inhaler (Ventolin HFA) asthma #6.7 grams albuterol sulfate 2.5 mg/3 mL 2.5 mg (3 mL) inhalation Q4H PRN 01/08/25 (0.083 %) solution for nebulization shortness of breath or wheezing #180 mL fluticasone propionate 50 See Rx Instructions .Route 01/08/25 mcg/actuation nasal .COMPLEX #16 grams spray,suspension hydrocortisone 2.5 % topical cream 1 applic topical TID PRN skin 01/08/25 irritation/hemorrhoid #20 grams meloxicam 15 mg tablet 7.5 - 15 mg (0.5 - 1 x 15 mg) PO 01/08/25 DAILY PRN scoliosis pain #90 tabs fluticasone 500 mcg-salmeterol 50 See Rx Instructions .Route 08/10/25 mcg/dose blistr powdr for .COMPLEX #60 blisters inhalation ibuprofen 800 mg tablet See Rx Instructions .Route 08/13/25 .COMPLEX #100 tabs lorazepam 1 mg tablet (Ativan) 1 mg PO BID PRN anxiety #10 tabs 10/23/25 Allergies Allergy/AdvReac Type Severity Reaction Status Date / Time house dust Allergy Mild Other (See Verified 10/23/25 13:48 Comment) mold Allergy Mild Other (See Verified 10/23/25 13:48 Comment) General Stated Complaint: Dizzy/Sync MAREK: 3 Review of Systems All systems reviewed & are unremarkable except as noted in HPI and below Constitutional Constitutional: Denies chills and Denies fever(s) Eyes Eyes: Denies loss of vision Cardiovascular Cardiovascular: Denies chest pain, Reports dyspnea and Reports other (palpitations) Respiratory Respiratory: Denies cough and Reports dyspnea Gastrointestinal Gastrointestinal: Denies abdominal pain, Reports nausea and Denies vomiting Neurologic Neurologic: Denies loss of vision Exam Const General: no acute distress Orientation: alert [facility] Head: normal to inspection and atraumatic Ears: external ears normal General nose exam: external nose normal Mouth: moist mucous membranes Eyes General: appearance normal, both eyes and all related structures Neck Neck: normal visual inspection, full ROM, no lymphadenopathy, no meningeal signs, trachea midline and supple Resp Effort & Inspection: normal respiratory effort and able to speak in complete sentences Auscultation: clear to auscultation bilaterally Cardio Jugular venous pressure: no JVD Rate: regular rate GI Palpation: soft and nontender Skin General skin exam: no rashes or lesions noted Neuro General: patient alert and patient oriented x3 Cranial Nerves: CN's II-XI intact bilaterally, PERRL, accommodation normal and EOM intact bilaterally Cognition: normal cognition Speech: speech normal Motor: muscle tone normal throughout Sensory Exam: no sensory deficits noted Extrem General: normal to inspection Psych Mental Status: mental status grossly normal Course Vital Signs Vital signs: Vital Signs Temperature 36.6 C 10/23/25 13:43 Pulse 83 10/23/25 13:43 Respiratory Rate 20 10/23/25 13:43 Blood Pressure 149/71 H 10/23/25 13:43 Pulse Oximetry 96 10/23/25 13:43 Temperature 36.6 C 10/23/25 13:43 Temperature Source Tympanic 10/23/25 13:43 Pulse 83 10/23/25 13:43 Respiratory Rate 20 10/23/25 13:43 Blood Pressure 149/71 H 10/23/25 13:43 Blood Pressure Position Supine 10/23/25 13:43 Pulse Oximetry 96 10/23/25 13:43 Oxygen Delivery Method Room Air 10/23/25 13:43 Oxygen Flow Rate 0 10/23/25 13:43 Pain Level 0 10/23/25 13:43 Medical Decision Making 75-year-old female with a history of COPD, comes in with 2 weeks of feeling dizzy and lightheaded when she lays flat and also when she stands up. She also notes some mild headaches intermittently and posterior neck pain. Says that she has chronic issues with her neck which is unchanged. She also notes some beating regularly of her heart, she says that she currently feels like she has palpitations and she is in sinus rhythm. She denies any fevers but has had a cough. She has no pain in her difficulty breathing that is increased with exertion. She is well-appearing oriented x 4 and arrival. She has full range of motion of her neck without visible palpable deformities. She has tenderness over the paraspinous muscles of the neck bilaterally. Counters 2-12 are intact. She has no sensorimotor deficits on exam. Her NIH is 0. Clear lung sounds, no leg swelling or calf tenderness. Stable vital signs. She does note that she has been feeling increased anxiety recently due to recent of a family member and being near the holidays. Given her age and complaints I am going to proceed with a CTA of the head and CTA of the neck and brain to evaluate for etiology such as vertebral dissection. Given her reassuring neuroexam I doubt CVA. I will check a CBC CMP and troponins. She has no tearing back pain and has equal peripheral pulses so I doubt aortic dissection. She has no tachycardia or hypoxia and has no evidence of DVT on exam so I doubt PE. She has no abdominal tenderness on exam so I doubt intra-abdominal pathology such as AAA. Patient's labs and imaging are reassuring and she does feel somewhat improved after lorazepam and IV fluids. Delta troponin also negative. Given reassuring workup I feel she can follow-up with her PCP, she did have some improvement with lorazepam so I am going to provide her with a short course of this to take as needed. Return precautions discussed. Differential Diagnosis Differential Diagnosis: Dehydration, anxiety, vertebral dissection, electrolyte abnormality Medical Records Medical records reviewed: Yes I reviewed the patient's medical records. Lab Data Lab results reviewed: Yes I reviewed the patient's lab results. ECG Data Attestation: I personally reviewed and interpreted this ECG (s) as follows: Prior ECG tracings: available for review Interpretation: sinus rate of 85 no stemi PFSH All Active Problems (Updated 10/23/25 @ 16:45 by Jimmy Molina MD) Neck pain (Acute) Dizziness (Acute) Muscle cramps (Chronic) COPD exacerbation (Acute) Spider veins (Chronic) NSAID long-term use (Acute) Ganglion cyst of wrist (Acute) Arthrosis of first carpometacarpal joint (Acute) L; x-ray 12/2019 Scoliosis (Chronic) Allergic rhinitis due to pollen (Chronic) [place] [employer] consultation 2017: Saline spray, azelastine spray, ventolin, prednisone PRN, fluticasone, symbicort, zyrtec Moderate persistent asthma (Chronic) Medical History (Updated 10/23/25 @ 16:45 by Jimmy Molina MD) Change in voice Resolved Influenza A (~12/2024) Pneumonia COVID (~06/2023) Dermatofibroma Reyes angioma Multiple benign melanocytic nevi of upper extremity, lower extremity, and trunk Seborrheic keratoses Lentigines Actinic cheilitis COPD (chronic obstructive pulmonary disease) Pt. states she has damage to her bronchi due to a severe bought of bronchitis in her 20's Palpitations Pt. stated had cardiac work-up in [place], per pt. stated told her she did not need to have any tx at the time, states occasionally she will get palpitations but they don't amount to much. Pt. states she is very active. Rhinitis Melanoma In situ, left upper inner arm s/p WLE 09/2015 Derm consultation (last 2016, no evidence of recurrence) q6m in [place] Surgical History Status post laparoscopy-assisted vaginal hysterectomy (~12/2020) LAVH, BSO, anterior colporrhaphy, Callahan's culdoplasty Status post D&C Status post surgical removal of malignant neoplasm of skin Family History Son Family history of thyroid problem Asthma Arthritis Father Stroke Diabetes Mother Diabetes Breast cancer Asthma Arthritis Cancer Skin Heart disease Sister Diabetes Arthritis Maternal Grandmother Heart disease Maternal Uncle Alcohol use disorder Social History Smoking/Tobacco Use Status: Never Smoking risk assessment performed?: Yes Alcohol Intake: current Alcohol Intake frequency: a few times a week Drug use: Never Substance use type: does not use Adopted: No Caregiver/Support person: No Foster care: No Household members: spouse Housing: house Number of Children: 1 Communication Needs: None Education Level: master's degree Do you need help understanding health information?: Never current occupation: Retired self-employed PT Pets and animals: No Sexually active: Yes Do you think of yourself as: straight/heterosexual Current gender identity: female What is your relationship status?: How often do you talk on the phone with friends or family?: once per week How often do you get together with friends or relatives?: never How often do you attend taoism or tenriism services?: decline to answer Do you belong to any clubs or organized social groups?: no Panel score (0-1 are the most socially isolated patients): 1 What type of physical activity do you participate in: independent ambulation, aerobic, regular exercise, swimming and other Details: Figure skating, cross country skiing, gardening, health gymnastics Duration: 30-45 minutes/day Frequency: daily Seatbelt use: always Helmet use: Yes (If required) Helmet use: sometimes Drive intox or ride w/intox combine driver: No Do you feel safe at home: Yes Do you feel safe in your relationship?: Yes Additional Social history: Lives with & son
[2025-10-23 14:36] LABS: Glucose Negative (Negative)
[2025-10-23 14:41] LABS: Abs Immature Grans 0.02 10^3/uL (0.0-0.06); HCT 40.5 % (36.0-46.0); HGB 13.1 g/dL (11.2-15.7); Immature Grans % 0.2 %; MCH 28.9 pg (27.0-33.0); MCHC 32.3 % (32.0-36.0); MCV 89 fL (80-95); MPV 8.2 fL (8.0-11.0); Platelet Count 326 10^3/uL (130-400); RBC 4.53 10^6/uL (3.93-5.22); RDW 12.7 % (11.7-14.6); RDW-SD 41.7 fL; WBC 8.92 10^3/uL (4.4-10.8)
[2025-10-23 14:57] LABS: Troponin I 3 ng/L (<35)
[2025-10-23 14:59] LABS: ALT 23 U/L (10-49); AST 29 U/L (<34); Albumin 4.5 g/dL (3.2-5.0); Alkaline Phosphatase 108 U/L (46-116); Anion Gap 8.1 mmol/L (3-11); BUN 18 mg/dL (9-23); Bilirubin, Total 0.6 mg/dL (0.2-1.2); CO2 27.9 mmol/L (20.0-31.0); Calcium 9.2 mg/dL (8.3-10.6); Chloride 106 mmol/L (98-107); Glucose 107 mg/dL (74-106); Magnesium 2.0 mg/dL (1.6-2.6); Potassium 3.9 mmol/L (3.5-5.1); Sodium 142 mmol/L (136-145); Total Protein 7.2 g/dL (5.7-8.2)
[2025-10-23] MEDS: LORazepam 2 MG/ML VIAL 1 MG IVP (15:00)
[2025-10-23] MEDS: Normal Saline 1,000 ML 1000 ML IV (15:00)
[2025-10-23] MEDS: Normal Saline - Diluent 50 ML VIAL IJ (15:04)
[2025-10-23] MEDS: Omnipaque 350 MG/ML 100 ML BTL IJ (15:05)
[2025-10-23] MEDS: Normal Saline Flush 10 ML SYR IVP (15:09)
[2025-10-23 16:24] LABS: Troponin I 3 ng/L (<35)
== END 2025-10-23 17:04 | disposition home or self-care (01) ==
PROVIDERS: Emergency Provider Emergency Medicine; PCP Nurse Practitioner Adult Health
DX: R42 Dizziness and giddiness (principal); M54.2 Cervicalgia
CPT/HCPCS: 36415; 70496; 70498; 80053; 87637; 93005; 96361; 96374; 99285; 71046; 81003; 83735; 84484; 85025; 93010; 99284; J2060; J3490